=== PATIENT | male | born 1980 | race Caucasian/White ===

== ENCOUNTER 2018-04-08 09:00 | Outpatient (RCR) | payer MEDICAID, SELFPAY ==
--- NOTE | 2018-04-08 09:01 | BH.SGPN.GN ---
Behaviors/Verbalizations/Mental Status: [Client maintained fair eye contact, casually dressed, motor activity restless as client fidgeting, shaking legs, and looking at phone throughout, speech normal rate and tone, mood irritable,anxious, affect congruent, thoughts linear and logical, no evidence of delusions or hallucinations. Therapist reviewed clients symptom tracker to assess for intensity of mental health symptoms and identify risk for suicide. No signs of suicidal ideation, plan, or intent to date.] Client Response/Progress/Benefit: [Client first day in IOP program and adjusting to group environment. He did well to provide input to discussion and openly shared current symptoms and stressors leading to admission to IOP program. CLient expressed that he has been dealing with difficulties in managing his emotions, specifically that of irritability following an accident at work that left him severely injured. CLient indicated that he has been trying to move on but workman's comp. won't let me. Client disclosed wanting to gain better control of his anger as he feels it has been negatively impacting his relationships and client overall mental health. Client benefitted from the feedback provided by fellow participants who expressed struggling with similar irritability problems in the past. Client appears to have some insight into what his anger triggers are and expresses motivation to improve anger management. CLient recommended continued IOP to prevent decompensation while working on improving emotion regulation and stress management capabilities. ] Narrative Note: []
--- NOTE | 2018-04-08 13:14 | BH.COMM ---
Communication Note - Communication with Client Communication Note: Therapist met with client to build rapport and follow up after client's first day of IOP. Client shared group went well, and it was helpful to hear other people's stories. Client reported he has been struggling with numerous stressors, symptoms, and hardships that client would like to work on while in IOP. Client stated, I'm just irritable all the time and he wants to reduce irritability, increase coping skills, and increase the amount of activities he can do with his physical limitations. Client receptive to meeting with therapist for a full session later this week.
--- NOTE | 2018-04-09 09:03 | BH.SGPN.GN ---
Behaviors/Verbalizations/Mental Status: [Client maintained good eye contact throughout, casually dressed, motor activity was restless - client clenching fist and jaw, fidgeting in seat, speech circumstantial, mood depressed,anxious,irritable, affect congruent, thought circularity regarding frustration with supports and current disability limitations, no evidence of delusions or hallucinations. Therapist reviewed clients symptom tracker to assess for intensity of mental health symptoms and identify risk for suicide. No signs of suicidal ideation, plan, or intent to date.] Client Response/Progress/Benefit: [Receptive of session and actively engaged in the discussion portion. He indicated connecting well with fellow participants who were describing frustrations with her current support system as many participants indicated feeling misunderstood supports. Client went on to via an example in which he had gone home following OP group on the previous date and felt bombarded with questions from his . Client indicated experiencing difficulty in her remaining calm and indicated verbally lashing out telling his that she should just look at the binder. Client went on to describe not wanting to communicate the information he had just spent hours discussing in group however had difficulty in communicating that with his . Client displaying progress in his ability to recognize triggers for irritability as well as barriers in communicating effectively with supports. He appeared to benefit from connecting with fellow participants and reflecting upon areas in which she may have some control over her current circumstances. Client recommended continued IOP treatment in order to prevent decompensation as well as further improve current knowledge and understanding of personal mental health symptoms inability to cope with them.] Narrative Note: []
--- NOTE | 2018-04-09 10:17 | BH.SGPN.GN ---
Behaviors/Verbalizations/Mental Status: []Client alert and oriented, casual dress. Eye contact good. Motor activity restless, tense body language. Speech within normal limits. Affect flat, mood irritable, anxious. Thoughts linear, logical, no signs of hallucinations or delusions. Client Response/Progress/Benefit: []Client responded well to session, providing insight to discussion. Client appeared to connect with the quote sharing, sometimes it feels like you have to carry the load by yourself. Client discussed coping skills stating coping skills help one process, manage, and release emotions. Client shared one can learn coping skills from anyone and that unhealthy coping skills can be easier to use, but they have negative consequences. Client participated in the activity and appeared to regulate his irritability and be patient as evidenced by his reduced restlessness and improved engagement. Client shared the activity helped client increase awareness of the importance of quality coping skills over quantity. Client also reported it is important to have a mix of internal and external coping skills to prevent one from going boom. Client stated he mainly relies on himself when struggling with hardships which does not work out for client as he currently feels unstable. Client appeared to benefit from increasing awareness coping skills and of the benefits of having a balance of internal and external coping skills. Clients progress limited as it is clients second day, but he appears to attentive and active through note-taking. Client to continue IOP to increase emotional regulation and promote mood stability.
--- NOTE | 2018-04-09 11:25 | BH.SGPN.GN ---
Behaviors/Verbalizations/Mental Status: []Client alert and oriented, dress casual. Eye contact fair. Motor activity tense jaw, restless. Speech monotone, otherwise within normal limits. Affect constricted- client smiled a few times. Mood irritable, anxious. Thoughts linear, logical, no signs of hallucinations or delusions. Client Response/Progress/Benefit: []Client responded well to session, smiling with peers at times and providing ideas for coping skills. Client able to identify healthy and unhealthy coping skills he has used to manage his anger. Client shared he tries to use distractions which help manage his symptoms short term. Client helped the group create a list of coping skills for the five categories of coping skills- distraction, emotional release, grounding, self-love, and thought challenging. Client reported he often uses music and nature to cope which has been helpful. However, client has a hard time regulating his irritability, anger, and triggers. Client reported willingness to try identifying negative thoughts, music, and the 5-senses. Client appeared to benefit from increasing his repertoire of healthy coping skills and learning the importance of using a variety of coping skills. Client to continue IOP to prevent decompensation and increase emotional regulation skills.
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
--- NOTE | 2018-04-11 13:52 | BH.DR.ITP ---
Initial Treatment Plan - Patient Information Visit Information: ADMISSION DATE: EXPECTED LOS: 4-6 weeks Diagnoses:: Major depressive disorder F 33.2. PTSD - Problems/Symptoms Problem #1:: Depression Symptom:: Sad mood, anhedonia, recent thoughts of , biologic disruption of sleep and appetite Problem #2:: Anxiety Symptom:: Rumination, intrusive traumatic memories, panic, hypervigilance
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
--- NOTE | 2018-04-11 14:54 | BH.PSA_ITS ---
Source of Information - Presenting Problems/Circumstances Problems, Referral Source, Mental Status, Client: Client is a 37-year-old man, referred by his , who presents to [facility] due to symptoms of depression, anxiety, and PTSD. Client experienced a life-threatening accident at work in February 2017 in which he was trapped under a large amount of rubble. The accident required numerous surgeries and significantly decreased his quality of life. Client has not been back to work since the accident. Client reports worsening mental health symptoms which impact his social, familial, and occupational functioning. Client denies mental health history prior to the accident as well as psychiatric hospitalizations. Client currently reports depression, anxiety, and PTSD and endorses decreased sleep, decreased appetite, irritability, lack of motivation, lack of energy, hopelessness, poor memory, isolation, and poor concentration. Client shares having constant anxiety and frequent panic attacks with no triggers. Client also endorses flashbacks, vivid memories of the accident, hypervigilance, restlessness, and difficulty regulating emotions. Client reports passive thoughts of suicide, but he denies active suicidal or homicidal ideation, plan, or intent. Client was alert and oriented during session, restless, irritable, and cooperative. Psychiatric Presentation - Psych Issues & Need for Admission Psychiatric Issues:: Major depressive disorder single episode severe F 33.2; PTSD; Nicotine use disorder; Cannabis use Past Psychiatric History - Treatment Hx Treatment History: Psychiatric history significant for depression and PTSD since the accident and client denies history of mental health prior to the accident. Client denies history of previous psychiatric hospitalization or suicide attempt. Client currently sees Juan Luis [facility] for individual counseling whom he seen for 1 month. Client had past a medication trial of Depakote was discontinued after a month due to headaches. Client has been taking Zoloft for the past 2 months but reports that he has been consistent with it for only the past week. First hospitalization:: none reported Most recent hospitalization:: none reported Medication Trials:: Yes - Zoloft, Depakote ECT Therapy:: No Age of first mental health symptoms: Client denies history of mental health prior to his accident in 2016. Client first started experiencing symptoms of anxiety, depression, and PTSD at age 36. Describe (age, circumstance, etc) any past hospitalizations: Client denies previous hospitalizations. Current providers for mental health treatment (counselor, psychiatrist, nurse case management, etc.): Client currently sees Juan Luis Long at [facility]. Client just started seeing Juan Luis and has been to two sessions per client report. Development & Family of Origin - Childhood Significant Childhood Events: Client described his childhood as normal. - Family Who currently lives in your home?: Client and his live in [place] with [place] four [place]. Client shared we have a lot of space and it's nice. Describe family composition:: client was born and raised in [place], [place]. Client is the middle of 3 children, one older and one younger brother. Client describes growing up as normal. Client shared his parents have always been together. Client reported being close with his brothers and parents. Client has been to his , Gagandeep, for 9 years and together for 16 years. Client described his marriage as up and down. They have 4 children- triplet boys age 3 and a daughter age 4. Two of the triplet boys have fragile X syndrome. - Family History Family Hx of Psychiatric or AOD Problems: Client stated he father was a drinker but he denies family history of mental health or AOD problems. Ethnicity - Culture Do you identify yourself with any particular cultural, ethnic background, or community?: No - Sexuality Sexual Orientation: Heterosexual Spirituality - Adventism Do you currently identify with any organized scientologist?: non sabianism - Beliefs Is there a particular form of support from this community you can use for your recovery?: Yes - Client stated his arthur is important to him and he is a believ er Mental Status - Memory Recent Memory: Poor Remote Memory: Fair - Concentration Concentration: Fair - Eye Contact Eye Contact: Scans - Speech Speech: Rapid, Repetitious, Loud - Thought Process Thought Process: Logical, [place] Insight: Fair Judgment: Poor Behavior: Agitated - Orientation Orientation: Time, Person, Place, Situation - Appearance Appearance: Appropriate - Mood Mood: Anxious, Depressed, Irritable - Affect Affect: Constricted Suicide Assessment - Suicidal Ideation Have you ever felt like hurting yourself?: Yes Were you using ETOH/drugs at the time?: No Suicidal Intentional Rating Scale (SIRS): Suicidal thoughts (past) - Client has had intermittent passive thoughts of suicide. Last thoughts were 1 week ago. Denies suicide plan or intent. Feels able to maintain safety. Physician Notification: If Active suicidal thoughts/Will not contract for safety is checked, contact physician and document in the Physician Notification section below. Violent Behavior/Abuse History - Homicidal Ideation Do you have any homicidal thoughts? If so, explain:: Yes - client shared having thoughts of hurting others when angry. Is there a known potential victim? If yes, who:: No - Abuse Have you ever been abused?: No - Life Events Are there any other significant life events?: Financial loss - Client currently involved with workers compensation due to work injury and he is receiving a percentage of his normal pay. Client's had to return to work to maintain household needs., Hardships - client unable to work, experiencing daily pain, has limited physical ability, stressors with worker's compensation, and difficulty managing his emotions. - Safety Do you ever feel threatened in your home? If yes, describe:: No Adult Social History - Age 18 to Present Describe your current support system:: Client identified his , parents, brothers, and some buddies from youth as his supports. Client shared not many people in his life understand mental health though. Substance Use - Substance Substance Use Type: Alcohol - Consumes a sixpack of alcohol 1-2 times per month, Marijuana - Smokes cannabis daily for the past 2 months., Tobacco - client chews tobacco daily. Smokes occasional cigarettes socially., Caffeine - Consumes 2 cups of coffee daily., Other - Client did not shared what drugs he has used in the past but shared there weren't many things I didn't try. Client denied heroin use. - Specific Drugs What specific drugs have you used?: Alcohol, marijuana, caffeine, and tobacco. Client shared during his youth I partied a lot and used illicit drugs, but client declined to shared which drugs. Client denies heroin use. - Extent of Use What quantity of substances have you used?: Client reports drinking a sixpack of alcohol 1-2 times per month, client smokes marijuana daily two bowls- one in the morning and one in the evening. Client reports social cigarette smoking and chewing daily. - Duration of Use How long have you used substances?: Client reports chewing and drinking for at least 15 years. Client reports increased marijuana use over the past 2 months. Client reports he has stopped using republican drugs. - Last Usage What is the date and situation you last used?: Client smoked marijuana this morning and used a bowl. Client drank last weekend with his brothers. Client reported I gave up partying when I got and had kids. - Withdrawal History Comments:: none reported - IV Substance Use Do you have a history of IV use?: none reported Leisure/Social Activities - Interests What do you enjoy or might be interested in learning about?: Client enjoys fantasy football, fishing, hunting, learning about history, being outdoors, mowing, and spendting time with his children. 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 Client has been unable to work since last February. List any previous volunteering you may have done:: none reported Service - Service Have you ever been in the ?: No Legal History - Records Have you had any past legal charges?: Yes - Age 20 was charged with disorderly conduct after a bar scuffle. Do you have any current legal charges?: No - Court Orders Have you had any past court orders for psychiatric treatment?: No Do you have a present court order for psychiatric treatment?: No Problem Checklist - Current Problem Areas Problem List: Nutritional/Eating pattern changes - Reports an overall decreased appetite., Pain management - In February 2017 he sustained a traumatic work injury in which a portion of the road fell on him resulting in hip fracture and other physical injuries. He reports ongoing pain and physical limitations., Depressed mood/sad - Client endorses a depressed mood with irritability, anhedonia, decreased energy, Anxiety - Moderate ruminative anxiety regarding his future inability to provide for his family. Panic attacks over the last 2 months in which he has shortness of breath and heart palpitations., Traumatic stress - reports symptoms consistent with PTSD and including intrusive memories of the trauma, avoidance, and hypervigilance to noises and activity. He describes feeling in defense mode., Anger/aggression - Client shared I'm just tense and pissed all the time. Client stated his anger is easily triggered and when he gets upset he wants to hit or hurt something, but not himself. Client shared he would never hurt his or children. Client stated his anger and irritability get to the point where I just have to get away from people or it will be bad., Inattention - reports difficulty concentrating, Substance use - Smokes cannabis daily for the past 2 months. Client reports history of substance use in his youth sharing, what didn't I try back then and that he partied a lot. Client denies current illicit drug use outside of cannabis. Client also reports drinking 1-2 six packs per month, but shared he has drank to avoid problems in the past., Pertinent health issues - Pelvic fracture due to work injury February 2017 HNP-work injury February 2017, Additional psychosocial stressors - Client and his have four small children, two of which have fragile X syndrome and need additional support and care. Client unable to work due to his physical limitations and mental health. Discharge Planning Needs - Anticipated Follow-Up Mental Health Center (Name/Phone Number):: [facility]. 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 What are the client's goals?: Client wants to reduce irritability, increase coping skills, and increase the amount of activities he can do with his physical limitations. What are the client's strengths?: Client reports wanting to improve his mental health stating, I don't like being this angry person. Client appears to have a good sense of humor, is intelligent, cooperative, and reports living life by you treat me with respect I'll do the same. Client is a father to 4 young children and shared his children are his main motivator for improving his mental health. Client demonstrates resilience as shown by his ability to overcome a life-threatening accident. Client identifies his parents, brothers, and a few close friends as positive supports. Client stated he enjoys spending time outside and listening to music which also help client manage his anxiety and anger. Diagnoses - Diagnoses Diagnosis #1:: Major depressive disorder single episode severe F 33.2 Diagnosis #2:: PTSD Diagnosis #3:: Nicotine use disorder Diagnosis #4:: Cannabis use Interpretive Summary - Interpretive Summary Interpretive Summary: Client is a 37-year-old male who presents to [facility] with chief complaint of depression and anxiety. Client denies previous psychiatric problems until February 2017 when he experienced a traumatic work injury in which a portion of the road fell on him resulting in hip fracture and other physical injuries. Client endorses depression due to ongoing pain and physical limitations. Client has difficulty performing his ADLs such as tying his shoes due to ongoing pain from his injuries. Client reports symptoms consistent with PTSD, including intrusive memories of the trauma, avoidance, and hypervigilance to noises and activity. Client describes feeling in defense mode and shared he feels constantly triggered at home due to having four small children. Client endorses a depressed mood with irritability, decreased appetite, anhedonia, decreased energy, and difficulty concentrating. Client has had intermittent passive thoughts of suicide with his last thoughts being one week ago. Denies suicide plan or intent and feels able to maintain safety. Client denies hallucinations or symptoms consistent with psychosis. Client shares moderate ruminative anxiety regarding his inability to provide for his family and panic attacks over the last 2 months in which he has shortness of breath and heart palpitations. They are triggered by events in which client feels like he does not have control. Client denies family history of mental health or AoD, but described his father as a ?drinker.? Client denies abuse or trauma prior to his work injury. Client reports using alcohol and cannabis to cope with emotional and physical pain. Client was encouraged alcohol and cannabis abstinence. Treatment Plan Recommendations - Recommendations Guidelines: Special needs identified to be included in the development of an individualized treatment plan regarding past psychiatric history and treatment, developmental events, family relationships/events/culture, past and/or current educational, occupational, social, and residential experience, and legal status. Recommendations:: Client recommended to be admitted to [facility] as the structured setting is necessary to prevent decompensation. Client also encouraged to follow up with outpatient counseling at [facility] as well as alcohol, nicotine, and cannabis abstinence.
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
--- NOTE | 2018-04-14 16:26 | BH.COMM ---
Communication Note - Communication with Client Communication Note: Therapist attempted to call client's outpatient therapist Juan Luis Long for continuity of care and to provide updates. Therapist left a message for
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
--- NOTE | 2018-04-15 10:15 | BH.SGPN.GN ---
Behaviors/Verbalizations/Mental Status: [Client maintained good eye contact, actively engaged, casually dressed with appropriate hygiene, motor activity within normal limits - some restlessness near end of session AEB tapping feet, playing on phone, speech normal rate and tone, mood euthymic, contemplative, affect congruent, thoughts linear and logical - reflective of content discussed, no evidence of delusions or hallucinations.] Client Response/Progress/Benefit: [Client receptive of session and engaged throughout, AEB providing input to discussion and connecting with examples provided by others on topic of conflict resolution. Client indicated agreeing with the quote for today's topic and expressed beliefs that not listening to understand is his biggest barrier in relaying his mental health sx to his . Client benefited from reviewing various conflict resolution styles and the pros and cons of each. Did well to provide insight on each, specifically identifying the pros/cons of various conflict styles, though at times looking at phone which was distracting himself and others. Client identified often falling into the assertive and ?avoiding? approaches to conflict, reflecting that sometimes he has to avoid or her will ?explode on someone. Made progress in his ability to identify ways in which these approaches impact current relationships as well as client mental health. Client recommended continued IOP treatment to further improve ability to internalize tx materials, improve emotion regulation, and increase utilization of internal coping and thought challenge skills.] Narrative Note: []
--- NOTE | 2018-04-15 11:17 | BH.SGPN.GN ---
Behaviors/Verbalizations/Mental Status: [Client maintained fair eye contact, dressed casually and comfortably, motor activity restless use of coloring to self regulate, speech normal rate and assertive tone, mood euthymic, agitated, affect full, thoughts linear and logical, no evidence of delusions or hallucinations.]] Client Response/Progress/Benefit: [Client responded well to session, active participant and attentive in both activity and discussion portions. Client did well to work with fellow participants in completing the challenge activity. Indicates using collaborating communication throughout and noted easily compromising an discussing with the group. Client reflected that this does not occur in his own life, particularly in communicating with his , as client noted that he feels others in his life are not willing to collaborate or listen which in turn impacts his patience and willingness to listen as well. Progress noted in identifying how not being willing or able to easily collaborate impacts client emotion regulation and mental health sx management. Client helped the group identify strategies to improve conflict resolution such as taking a break, actually taking time to communicate with supports, and listening as the other person shares. Client appeared to benefit from learning various conflict resolution strategies. Client to continue IOP improve mood regulation and communication with supports, as well as prevent decompensation.] Narrative Note: []
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
--- NOTE | 2018-04-16 10:25 | BH.SGPN.GN ---
Behaviors/Verbalizations/Mental Status: []Client alert and oriented, neatly dressed and groomed. Eye contact good. Motor activity appropriate. Speech within normal limits. Affect full, mood euthymic. Thoughts linear, logical, no signs of hallucinations or delusions. Client Response/Progress/Benefit: []Client responded well to session, participating occasionally. Client connected with the quote sharing, ?I focus on the negatives and then I?m angry all the time.? ?Client appeared somewhat disengaged, but he listened as the group discussed the different types of distortions and client reported ?I use all of them.? Client agreed with peers that cognitive distortions further worsen mental health symptoms. Client appeared to benefit from gaining insight to the different types of cognitive distortions. Client to continue IOP as he continues to report severe anger, a depressed mood, and low motivation.
--- NOTE | 2018-04-16 11:25 | BH.SGPN.GN ---
Behaviors/Verbalizations/Mental Status: []Client alert and oriented, neatly dressed and groomed. Eye contact good. Motor activity appropriate. Speech within normal limits. Affect flat, mood irritable. Thoughts linear, logical, no signs of hallucinations or delusions. Client Response/Progress/Benefit: []Client responded somewhat well to session, engaged in activity, but sarcastic during discussion. Client was active during the group activity and connected that overcoming cognitive distortions takes a lot of time, practice, and energy. Client participated with the group in identifying cognitive distortions and replacing them. Client identified his thought of ?nothing works I should just give up? which client identified as all or nothing thinking and overgeneralizing. Client reluctant to challenge this thought, but he did so with group help. Client reframed the thought to ?maybe things will get better.? Client appeared to benefit from gaining insight to the effort it takes to replace negative thoughts and from challenging a negative thought during group.
--- NOTE | 2018-04-17 10:16 | BH.COMM ---
Communication Note - Communication with Client Communication Note: Therapist called client as he no showed for his scheduled IOP individual and group sessions today. Client shared he attempted to call and cancel, but he did not reach anyone and then forgot to call back. Client stated he has an appointment this morning that conflicted with IOP and client plans to attend group and meet with individual therapist tomorrow 04/18/18.
--- NOTE | 2018-04-18 09:00 | BH.SGPN.GN ---
Behaviors/Verbalizations/Mental Status: [] Eye contact was fair. Motor Activity was restless. Appearance was casual. Speech was appropriate. Mood was irritable and anxious Affect was congruent. Thoughts are linear and logical. No evidence of hallucinations/delusions noted. Therapist reviewed daily mood tracker for suicidal ideations and none were reported. Client Response/Progress/Benefit: [] Active participant in group discussion. Emotion for today is tense and anxious. Shared with the group some frustrations regarding medical appointments yesterday. Gets visibly upset when discussing certain providers whom he feels don't have his best interests in mind. More he talks and thinks about these events he reports getting more angry. Group provided support and empathy for his concerns. Reports that he has noticed some improvement in his anger however continues to struggle finding ways to calm. States that in the past he would utilize physical exercise or strenuous work to release tension however due to medical issues he is unable. Also reports stress and anger that he cannot provide for his family like he once did. Group was able to point out that caring for family takes many forms and gave suggests on ways to provide for his family emotionally. Limited progress as pt struggles to utilize skills for anxiety and anger on a consistent basis, however appears motivated. Benefited from group feedback and support. Will continue in IOP to stabilize mood, prevent decompensation, and increase daily functioning. Narrative Note: []
--- NOTE | 2018-04-18 10:05 | BH.SGPN.GN ---
Behaviors/Verbalizations/Mental Status: []Client alert and oriented, hygiene good, casual dress. Eye contact good. Motor activity appropriate, appearing tense at times. Speech within normal limits. Affect constricted, mood euthymic, slightly irritable. Thoughts linear, logical, no signs of hallucinations or delusions. Client Response/Progress/Benefit: []Client responded well to session, active participant. Client appeared to connect with the topic sharing, we are harder on ourselves when it comes to failure, but you have to keep trying. Client able to identify famous people who have succeeded despite failures. Client identified failure as not reaching a goal or not trying. Client shared fear of failure can lead to lack of effort and can negatively impact mental health. Client participated in the group activity and identified that sometimes move has to move backwards to move forwards. Client appeared to benefit from gaining insight to how fear of failure impacts mental health. Client to continue IOP to prevent decompensation and increase use of internal emotional regulation skills to manage mental health symptoms.
--- NOTE | 2018-04-18 14:11 | BH.MDN ---
Multi-Disciplinary Note - Note 30-min Individual Time Started:: 08:50 Date: 04/18/18 Purpose of session/treatment goals addressed:: The purpose of this session was to provide psychoeducation on PTSD and increase client's awareness of warning signs, triggers, and symptom management. Another goal was to review grounding coping skills and set a goal to increase physical activity this weekend. Eye Contact:: Good Motor Activity:: Other - tense, rigid Appearance:: Casual Speech:: Rapid Mood:: Irritable Affect:: Constricted Thoughts:: Linear, Logical, No evidence of hallucinations/delusions noted Staff Interventions:: Therapist used active listening and open-ended questions to explore client's current stressors, symptoms, and use of coping skills. Therapist used a video on trauma and the brain to provide psychoeducation on the impact PTSD has on the cognitive and emotional response. Therapist introduced grounding and self-talk techniques to manage emotions when client experiences a trauma trigger. Therapist helped client increase insight to the importance of practicing grounding coping skills daily to reduce stress and increase emotional regulation. Therapist reviewed healthy versus unhealthy coping skills and helped client create a goal for the weekend. Client Response:: Client responded well to session, open to meeting with therapist. Client reported he continues to have difficulty managing his anger at home. Client shared he tries deep breathing, but that makes him feel tenser. Client stated walking away from the situation before I explode is the most helpful coping skill so far. Client reported belief not exerting enough energy throughout the day also contributes to his inability to manage stress and anger. Client was receptive to incorporating physical regulation into his daily routine to help better manage stress and increase his emotional regulation. Client shared he has been wanting to set up a punching bag, but he has not go around to it. Client and therapist identified various emotional release coping skills such as swimming, biking, and work out bands. Client agreeable to writing out a daily routine over the weekend incorporating these techniques. Client watched the trauma and the brain video and reported he connected with loss of memory and the survival response. Client shared he experiences hypervigilance, flashbacks, and intrusive memories that feel so real. Client open to learning grounding and self-talk techniques to manage emotions when client gets triggered. Client shared he would try positive self-talk statements over the weekend such as Im not in danger and try grounding techniques in the evenings. Risks/Concerns:: Client denies suicidal ideation, plan, and intent as of 04/18/18. Client reports ability to maintain safety. Progress Toward Goals/Plan:: Client demonstrating mild progress towards treatment goals as client reports increased awareness of his triggers and warning signs and has avoided punching things to release anger. Client shared learning about PTSD has also been helpful for normalizing client's experience. Client continues to report irritability, low motivation, poor memory, and difficulty regulating emotions. Client also reports ongoing communication and boundary issues with his which impacts client's mood. Client to create a daily routine to increase use of physical regulation and grounding skills. Client to continue IOP to prevent decompensation and increase emotional regulation. Time Stopped:: 09:13
[2018-05-16 15:15] VITALS: BP 128/85; PULSE 78; RESP 16
== END 2018-04-18 23:59 ==
LOC: BHIOP 09:00
PROVIDERS: Visit Provider Psychiatry & Neurology Psychiatry
DX: F33.2 Major depressive disorder, recurrent severe without psychotic features (principal); F43.10 Post-traumatic stress disorder, unspecified
CPT/HCPCS: 90836; H0035; H2012; H2020; T1002; 90832; 90837

== ENCOUNTER 2018-04-22 08:55 | Outpatient (RCR) | payer MEDICAID, SELFPAY ==
--- NOTE | 2018-04-22 09:05 | BH.SGPN.GN ---
Behaviors/Verbalizations/Mental Status: [] Pt eye contact fair, casually dressed, motor activity restless, speech normal rate and tone, mood anxious and irritable, congruent affect, thoughts linear and logical, no evidence of delusions or hallucinations. Reviewed client?s symptom tracker, no signs of suicidal ideation, plan, or intent as of today. Client Response/Progress/Benefit: [] Client reported he did not have a very productive or good weekend. Client shared he was in constant arguments with his and eventually went to his dad's on Saturday to go fishing and get away. Client reported he ended up just drinking and hanging out with his dad on the boat. Client did not want to go into details about what happened over the weekend besides nothing positive happened. Client shared feeling tense all weekend and did not attempt any of the coping strategies because breathing and relaxation skills do not work when I am extremely tense. Client progress could be hindered if client struggles with attempting to utilize the coping strategies to manage his emotions. Regression in progress given client went to using alcohol as a form of dealing with his issues. Client to continue IOP level of care to stabilize mood, improve daily functioning and prevent decompensation. Narrative Note: []
--- NOTE | 2018-04-22 10:12 | BH.SGPN.GN ---
Behaviors/Verbalizations/Mental Status: [Client alert and oriented, casually dressed and groomed. Eye contact fair to good. Motor activity appropriate. Speech within normal limits. Affect congruent, mood agitated, dysthymic. Thoughts linear, logical, no signs of hallucinations or delusions. ] Client Response/Progress/Benefit: [Pt receptive of session, mostly engaged throughout and coloring during discussion to remain regulated. Appeared to connect with the topic of Communication and how ineffective communication can impact mental health. Provided personal experience with relationships as well as ability to get needs met have been impacted by communicating during times of emotion dysregulation. Pt worked with group to identify potential barriers to communication and appeared to related to various barriers discussed. Pt was actively listening during discussion on different communication styles and shared relating to the communication style of aggressive communication, especially during times of increased stress. Pt shared wanting to become less aggressive and more assertive. Pt appeared to benefit from psycho-education provided regarding communication and it's impacts on mental health. Progress noted in pt ability to identify own communication style and it's impact on his mental health, especially regarding . Pt recommended continued IOP tx to promote healthy change behaviors, increase emotion regulation, and prevent decompensating.] Narrative Note: []
--- NOTE | 2018-04-22 11:26 | BH.SGPN.GN ---
Behaviors/Verbalizations/Mental Status: []Client alert and oriented, disheveled appearance. Eye contact good. Motor activity appropriate. Speech within normal limits. Affect congruent, mood euthymic. Thoughts linear, logical, no signs of hallucinations or delusions. Client Response/Progress/Benefit: []Client active participant AEB contributions and attentiveness throughout. Client took an active role during the activity that encouraged clients to practice clear, specific communication. At times struggling with maintaining focus, though easily redirected. Group identified strategies that helped the group communicate more effectively during the activity. Client identified communication goal which is to practice being more calm and consistent in his communication with supports. Client seemed to benefit from increased insight into how his communication style impacts mental health and identifying strategies for increasing effective communication skills. Progress noted as client reports increased mood regulation. Will continue IOP tx to prevent decompensation, improve mood stability, and promote consistent use of coping skills. Narrative Note: []
--- NOTE | 2018-04-24 14:27 | BH.COMM ---
Communication Note - Communication with Client Communication Note: Client called to cancel his scheduled IOP group and individual session today due to car issues on his drive to [place]. Client reports plan to attend group tomorrow, 04/25/18 if his car issues resolve. Client's individual session with this therapist was also rescheduled for tomorrow as well.
--- NOTE | 2018-04-25 12:17 | BH.COMM ---
Communication Note - Communication with Client Communication Note: Therapist called client as he no called/ no showed for his scheduled IOP group and individual session today. Client reported he continues to have car issues today and plans to attend group next week. Client recognizes that he was unable to meet individually this week due to cancellations and was open to meeting with therapist next week. Client did not know which days he could attend next week and shared he would call therapist back to provide more information.
--- NOTE | 2018-05-01 15:39 | BH.COMM ---
Communication Note - Communication with Client Communication Note: Therapist called client to follow up as client has been having car issues that prevent client from attending [facility]. Client shared his car is currently in the shop and he hopes to return to group next week. Client shared things this week are better than last week due to increased communication and understanding from his . Client reports ongoing back pain and irritability. Client and therapist discussed coping strategies to manage irritability over the weekend. Client to call therapist when he plans to return to [facility].
--- NOTE | 2018-05-01 15:43 | BH.COMM_ITS ---
Communication Note - Communication with Client Communication Note: Therapist called client to follow up as client has been having car issues that prevent client from attending [facility]. Client shared his car is currently in the shop and he hopes to return to group next week. Client shared things this week are better than last week due to increased communication and understanding from his . Client reports ongoing back pain and irritability. Client and therapist discussed coping strategies to manage irritability over the weekend. Client to call therapist when he plans to return to [facility].
--- NOTE | 2018-05-06 09:14 | BH.COMM ---
Communication Note - Communication with Client Communication Note: Therapist called client to discuss possible discharge due his lack of IOP attendance caused by car issues. Client reported he got his car back yesterday and plans to be at [facility] tomorrow 05/07/18. Client shared he does not want to be discharged and reported understanding that he needs to attend at least once this week, or he will be discharged from [facility]. Therapist to meet with client individual this week depending on client's attendance.
--- NOTE | 2018-05-06 09:19 | BH.COMM_ITS ---
Communication Note - Communication with Client Communication Note: Therapist called client to discuss possible discharge due his lack of IOP attendance caused by car issues. Client reported he got his car back yesterday and plans to be at [facility] tomorrow 05/07/18. Client shared he does not want to be discharged and reported understanding that he needs to attend at least once this week, or he will be discharged from [facility]. Therapist to meet with client individual this week depending on client's attendance.
--- NOTE | 2018-05-07 10:03 | BH.SGPN.GN ---
Behaviors/Verbalizations/Mental Status: []Client alert and oriented, casual dress, hygiene good. Eye contact poor. Motor activity appropriate. Speech within normal limits-sarcastic at times. Affect flat, mood irritable. Thoughts linear, logical, no signs of hallucinations or delusions. Client Response/Progress/Benefit: []Client responded well to session, participating in activity. Client discussed things in life that keep people stuck from obtaining mental wellness such as past hardships. Client listed things he would like to get rid of in his life that are contributing to his mental health symptoms. Client identified anxiety, pain, frustration, depression, poor memory, and anger. Client shared if he removed these stressors he would be able to do the things he used to be able to do. Client participated in the activity that promoted emotional release of things holding client back. Client appeared to benefit from identifying what he would like to remove from his life in order to obtain improved mental wellness. Client continues to struggle with emotional regulation and can benefit from ongoing IOP.
--- NOTE | 2018-05-07 11:05 | BH.SGPN.GN ---
Behaviors/Verbalizations/Mental Status: []Client alert and oriented, casual dress, hygiene good. Eye contact poor. Motor activity appropriate. Speech within normal limits-engaging in side conversations. Affect constricted, mood irritable. Thoughts linear, logical, no signs of hallucinations or delusions. Client Response/Progress/Benefit: []Client responded somewhat well to session, engaged in side conversations. Client created a 30-day plan to help client get rid of one of the stressors holding client back from improved mental wellness. Client?s 30-day plan was no more ?frustration at everything.? Client stated he picked this stressor because client has a hard time managing his anger and does not like feeling out of control. Client appeared to benefit from creating a 30-day action plan. Progress variable as client reports lack of implementation of healthy coping skills.
--- NOTE | 2018-05-07 14:31 | BH.MDN ---
Multi-Disciplinary Note - Note 30-min Individual Time Started:: 12:05 Date: 05/07/18 Purpose of session/treatment goals addressed:: The purpose of this session was to address and process client's current stressors, symptoms, emotions, and recent loss. Another goal was to discuss healthy coping skills to utilize while client is grieving. Eye Contact:: Poor Motor Activity:: Restless, Other - guarded Appearance:: Disheveled - pants were falling down Speech:: Rapid Mood:: Anxious, Irritable, Dysthymic Affect:: Flat Thoughts:: Linear, Logical, No evidence of hallucinations/delusions noted Staff Interventions:: Therapist used active listening and open-ended questions to explore client's current mood, stressors, and symptoms. Therapist assessed risk as client recently lost a friend to possible suicide. Therapist provided client a safe space to discuss and process his current emotions and grief. Therapist used strengths perspective to praise client on his ability to attend group today and reach out to positive supports last night. Therapist and client discussed healthy coping skills to use today to promote emotional release, healthy boundaries, and reduce anger. Therapist and client discussed bringing in client's to increase communication of client's needs and stressors. Client Response:: Client responded well to session, body language was guarded, but he was open to meeting with therapist. Client shared the past two weeks of not being at IOP have been up and down as client continues to report communication issues with his . Client stated the last two days have been difficult as client found out yesterday his friend of 20 years from a gunshot wound to the head from possible suicide. Client also had to put his dog down due to old age. Client shared he is having a hard time coping with all the stressors and is feeling mad, sad, and anxious. Client stated he often wears a mask when difficult things happen in life so that others think client is fine. Client expressed the mask makes it challenges to process and feel his emotions. Client went over to a friend's house last night for support after hearing about his friend's . Client stated spending time with the friend helped client feel better, but per client's report, his was upset that client was not home. Client reported feeling frustrated because he feels like he tells his what he needs, but client shared his disregards what he says, and just pisses me off more... she's always giving me her option and trying to fix me. Client was open to bringing his in for a family session next week. Client receptive to ongoing communication of his mental health stressors and needs, even if he does not get the response he hopes for. Client and therapist discussed healthy ways client can cope and deal with his grief and anger today such as spending time outside, communicating his need for self-care, listening to music, and going over to a friends house for social support. Risks/Concerns:: Client denies suicidal ideation, plan, and intent as of 05/07/18. Client shared he has thoughts of hurting things but I would never kill myself. Client reports ability to maintain safety and plans to be at group tomorrow which demonstrates future orientation. Progress Toward Goals/Plan:: Client's progress is limited as he did not attend IOP for two weeks due to car issues which may have impacted his ability to learn and apply healthy coping skills. Client continues to endorse a depressed mood, irritability, low energy, anhedonia, intrusive memories of trauma, and hypervigilance to noises. Client also continues to report ongoing back pain that exacerbates his mental health symptoms, specially his irritability. Client to continue IOP to prevent decompensation, increase mood stability, and learn to more effectively cope with symptoms. Client was encouraged to communicate with his [place] regarding a family session and to spend time with positive supports to help cope with his recent loss. Time Stopped:: 12:25
--- NOTE | 2018-05-08 09:05 | BH.SGPN.GN ---
Behaviors/Verbalizations/Mental Status: []Pt eye contact fair, casually dressed, motor activity tense, speech normal rate and tone, mood depressed and agitated, congruent affect, thoughts linear and logical, no evidence of delusions or hallucinations. AT times appeared distracted AEB pt looking at phone majority of time. Pt did verbalize he is still listening and the phone helps him stay busy so he can listen. Reviewed client?s symptom tracker, no signs of suicidal ideation, plan, or intent as of today. Client Response/Progress/Benefit: []Pt reported he is more relaxed compared to yesterday. Pt identified it helped when he left group yesterday he went for a massage. Pt reported when he got home from his massage his had the kids out swimming until bed time. Pt shared it gave him the opportunity to relax and not have any unneeded stressors. Pt reported he is still angry and upset over his friend's , but feels he is doing better with coping. Pt demonstrating progress with using healthy coping skills to help with recent suicide of best friend. Pt to continue IOP level of care to decrease anger, improve healthy coping, and prevent decompensation. Narrative Note: []
--- NOTE | 2018-05-08 10:09 | BH.SGPN.GN ---
Behaviors/Verbalizations/Mental Status: []Client alert and oriented, casual dress. Eye contact good. Motor activity appropriate. Speech within normal limits. Affect congruent, mood anxious, euthymic. Thoughts linear, logical, no signs of hallucinations or delusions. Client Response/Progress/Benefit: []Client responded well to session, attentive in discussion. Client appeared to connect with the quote and provided some insight. Client created a visual representation of current and desired realities in regards to mental wellness. In client?s current reality client described struggling to communicate with supports and being overwhelmed with anger impacting his ability to make progress. Shared feeling weighed down by PTSD as well. Shared desired reality is feeling more capable of regulating his emotions, able to return to work, and better communicating with supports. Client appeared to benefit from gaining awareness of what his current and desired realities look like as well as reflecting on progress he has made. Client to continue IOP to promote gains and increase consistency of healthy coping and improving emotion regulation. Narrative Note: []
--- NOTE | 2018-05-08 11:15 | BH.SGPN.GN ---
Behaviors/Verbalizations/Mental Status: []Client alert and oriented, casual dress. Eye contact good. Motor activity appropriate. Speech within normal limits. Affect congruent, mood agitated and euthymic. Thoughts linear, logical, no signs of hallucinations or delusions. Client Response/Progress/Benefit: []Client responded well to session, contributing positively. Client identified barriers in client?s control that are keeping him from getting to desired reality such as negative thinking and irritability. Client engaged in the group activity and was able to develop strategies to help overcome these barriers. Client reflected on the activity and shared importance of challenging negative perspective on overcoming barriers. Client set a goal to overcome the barrier of irritability by taking breaks and using deep breathing. Client appeared to benefit from problem-solving barriers in the moment. Progress noted as shown by client?s increased engagement. Recommended continued IOP tx to improve communication, decrease irritability, and improve mood regulation. Narrative Note: []
--- NOTE | 2018-05-09 09:05 | BH.SGPN.GN ---
Behaviors/Verbalizations/Mental Status: [] Pt eye contact fair, casually dressed, motor activity restless, speech normal rate and tone, mood depressed and agitated, congruent affect, thoughts linear and intact, no evidence of delusions or hallucinations. Reviewed client?s symptom tracker, no signs of suicidal ideation, plan, or intent as of today. Client Response/Progress/Benefit: [] Client reported current stressors include having to go to the tomorrow for his best friend that completed suicide. Client expressed concern about having interaction with a certain person at the that could potentially agitate client, however client shared he will do his best to avoid having any interaction with this person. Client shared positive is at the he will get to see a lot of people but he has not seen in a while and catch up. Client shared a goal for himself is to not drink any alcohol throughout the weekend because he recognizes when he drinks alcohol it tends to make his situation worse. Client showing progress with awareness of what unhealthy his coping skills he should not engage in as well as opening up more with thoughts and feelings during process group. Client to continue IOP level of care to decrease anger, increased healthy coping, and prevent decompensation. Narrative Note: []
--- NOTE | 2018-05-09 10:12 | BH.SGPN.GN ---
Behaviors/Verbalizations/Mental Status: []Client alert and oriented, casual dress, hygiene good. Eye contact good. Motor activity restless. Speech within normal limits. Affect constricted, mood irritable. Thoughts linear, logical, no signs of hallucinations or delusions. Client Response/Progress/Benefit: []Client responded well to session, providing input to session. Client discussed coping skills with the group and shared one learns coping skills from home, siblings, and school. Client shared people revert to unhealthy coping skills because ?it?s easier and a temporary fix but using healthy coping skills is more beneficial in the long run. Client participated in the group activity and recognized that when the group did not succeed they blamed one another. Client shared this can connect to coping with situations in life. Client appeared to benefit from learning about how one develops coping skills and from using in the moment coping skills. Client to continue IOP as he has improved communication with peers, but he continues to struggle with emotional regulation.
--- NOTE | 2018-05-09 11:12 | BH.SGPN.GN ---
Behaviors/Verbalizations/Mental Status: []Client alert and oriented, casual dress. Eye contact good. Motor activity restless. Speech within normal limits, using sarcasm. Affect constricted, mood irritable. Thoughts linear, logical, no signs of hallucinations or delusions. Client Response/Progress/Benefit: []Client responded well to session, using sarcasm at first which distracted from group, but then contributing positive insight. Client helped the group identify strategies for the different categories of coping skills and the purpose each category serves. Client shared it is important to have a variety of coping skills ?because sometimes you need something specific.? Client created a coping skills menu which included journaling, cooking, positive affirmations, DDD (delay distract decide) and radical acceptance. Client appeared to benefit from creating a coping skills menu and learning about the different categories of coping skills. Client to continue IOP as client continues to struggle with emotional regulation and mood instability.
--- NOTE | 2018-05-09 16:10 | BH.TPR ---
Treatment Plan Review Date of Admission:: 04/08/18 Date of Treatment Plan Review:: 05/09/18 Admitting Diagnoses:: Major depressive disorder F 33.2. PTSD Current Diagnoses:: Major depressive disorder F 33.2. PTSD Patient's Response to Treatment:: Client's response to treatment has been variable as client missed two weeks of IOP due to car issues and other stressors. Client recently returned to [facility] on 05/07/18 reporting numerous stressors including the loss of a friend by gunshot wound. Client continues to endorse severe symptoms of depression, anxiety, and PTSD. Client reports increased awareness of triggers, symptoms, and some warning signs, but he continues to report difficulty implementing healthy coping skills to regulate his emotions. Client has reduced some unhealthy coping skills such as drinking and punching things which demonstrates progress. Client is receptive to bringing his in to help with communication, support, and ongoing symptom management. Client reports motivation to improve functioning and appears open to learning new coping skills. Overall, client is an active participant, when at [facility], who provides insight and supportive statements to peers. Client struggles at times with engaging in side conversations, but he is easily redirected. Client has followed through with trying healthy coping skills discussed in group and individual sessions, but reports difficulty with consistency and proactive use. Status of Current Problems and Symptoms: Client's progress is limited as he did not attend [facility] for two weeks due to car issues which may have impacted his ability to learn and apply healthy coping skills. Client continues to endorse a depressed mood, irritability, low energy, and anhedonia. Client?s friend recently of a gunshot wound and client recognizes he is grieving. Client reports ongoing intrusive memories of work-related trauma, avoidance, and hypervigilance to noises. Client shared he cannot tolerate loud noises and feels unable to return to work due to the severity of his mental health symptoms. Client endorses ruminative anxiety which is due to work, home, and financial stressors. Client reports his symptoms are impacting his ability to regulate emotions, concentrate, and focus. Client also continues to report ongoing back pain that exacerbates his mental health symptoms, specially his irritability. Problem #1 Problem Name:: Pt. will decrease depressive symptoms, anhedonia, and agitation Status of Goals:: Client has not accomplished his treatment goal as he continues to endorse a depressed mood, irritability, anhedonia, difficulty concentrating, and low motivation. Client's mood may be further impacted due to a recent loss. Client and therapist have discussed coping skills for depression, but client continues to report difficulty implementing healthy strategies. Client is currently using music and yard work to cope which demonstrates some progress. Client and therapist have not yet been able to work on challenging cognitive distortions due to current stressors and issues with attendance. At admission client scored 8 out of 8 (severe) for depression and 4 out of 4 (severe) for anger. At review, client's scores remained unchanged at 8 and 4 for depression and anger respectively. Client and therapist currently working on establishing healthy coping routines and verbalizing emotions. Team Recommendations:: Client recommended to continue working on treatment goal as he continues to endorse depressive symptoms, low motivation, anhedonia, and irritability. Client also reports difficulty recognizing warning signs of depression and anger which makes it challenging for client to use healthy coping skills. Client and therapist currently working on establishing a daily routine to promote use of coping skills, exercise, and accomplishing tasks. Therapist and client also working on communicating needs and recognizing early warning signs. Client is recommended to follow up with outpatient therapist, Juan Luis Long for continuity of care. Problem #2 Problem Name:: Pt. will reduce anxiety and rumination and increase management of PTSD Status of Goals:: Client has not accomplished his treatment goal as he continues to report severe anxiety and PTSD symptoms. Client reports increased awareness of PTSD symptoms and has learned at least 2 coping skills to manage anxiety and PTSD, but client reports difficulty implementing coping skills and regulating emotions. At admission, client scored 12 out of 12 (severe) for anxiety and 4 out of 4 (severe) for anger. At review, client's scores remained at 12 and 4 for anxiety and anger respectfully. Client and therapist currently working on increasing emotional release and mindfulness skills to manage PTSD and anxiety. Team Recommendations:: Client recommended to continue working on treatment goal as client has gained awareness to PTSD triggers, but he continues to endorse hypervigilance, avoidance, and intrusive memories of the work-related event. Client continues to report difficulty regulating his emotions and trauma triggers which makes it hard for client to be around people and loud noises. Client recommended to bring his in to [facility] to help increase understanding of client's trauma triggers, mental health needs, and coping skills. Client also [facility] [place] for trauma-focused therapy.
--- NOTE | 2018-05-12 09:00 | BH.SGPN.GN ---
Behaviors/Verbalizations/Mental Status: []Client alert and oriented, dress casual, hygiene good. Eye contact fair. Motor activity restless AEB getting up to answer his phone and frequent adjusting in his chair. Speech within normal limits, short remarks. Affect flat, mood irritable. Thoughts linear, logical, no signs of hallucinations or delusions. Reviewed client?s symptom tracker, no risk for suicidal ideation, plan, or intent as of 05/12/18. Client Response/Progress/Benefit: []Client responded well to session, short responses, getting up at times to answer his phone. Client reports feeling ?irritable? today due to back pain. Client shared he did not drink at the he attended this weekend which was one of client?s goals. Client reported in the past he would have gotten drunk, but know client is starting to realize drinking is only a temporary relief that makes client feel worse after. Client has a family session today and he hopes his can learn more about mental health. Client appeared to benefit from receiving praise from peers on client accomplishing his goal. Client to continue IOP to prevent decompensation and increase emotional regulation skills to manage anger and PTSD.
--- NOTE | 2018-05-12 13:36 | BH.MDN ---
Multi-Disciplinary Note - Note Family Time Started:: 10:20 Date: 05/12/18 Purpose of session/treatment goals addressed:: The purpose of this session was to engage client's , Gagandeep, in the treatment process by providing psychoeducation, coping strategies, and ways to improve communication. Another goal was to identify a plan to reduce arguments and increase emotional regulation. Eye Contact:: Poor Motor Activity:: Restless Appearance:: Casual Speech:: Rapid Mood:: Irritable Affect:: Flat Thoughts:: Linear, Logical, No evidence of hallucinations/delusions noted Staff Interventions:: Therapist used active listening and open-ended questions to explore session goals. Therapist provided psychoeducation on PTSD, depression, and trauma to help client's understand client's thoughts, emotions, and behaviors. Therapist used conflict resolution and mediation techniques to de-escalate client and his while discussing issues and concerns. Therapist advocated for client's mental health by addressing symptoms, triggers, and warning signs. Therapist used a worksheet on fair fighting rules to help client and his identify areas they can improve on and what responses to avoid. Therapist encouraged client and his to recognize early warning signs, communicate breaks, and use proactive coping skills to prevent fighting and further escalation at home. Therapist discussed healthy versus unhealthy coping skills, communication, and support. Therapist used motivational interviewing to promote change talk and helped the couple identify potential consequences of not changing communication. Therapist assisted client and his in creating a goal to improve communication and increase emotional regulation. Client Response:: Client and Gagandeep responded well to session, arguing at times but able to de-escalate with therapist's help. Client's goals for the session were to help Gagandeep learn more about mental health and how to more effectively help client. Gagandeep shared she wants client to start making changes and do something. Gagandeep reported client is using unhealthy coping skills and he does not regulate his anger, which per her report, is hurting the family dynamic. Client recognizes that he has used unhealthy coping skills such as drinking which provides a temporary relief, but then makes client feel worse. Client and Gagandeep reported they do not communicate well and often fight unfairly by yelling, cussing, and saying hurtful things to one another. During the session some degrading language was used. Client stated these fights usually result in client being kicked out or breaking something. The couple was willing to discuss ways to improve communication and increase emotional regulation to prevent arguments. The couple and therapist discussed the zones of regulation including triggers and warning signs to pay attention to so that client and Gagandeep can utilize coping skills to calm themselves down. Client shared willingness to verbalize need for breaks, write out his emotions, and exercise. Client verbalized his triggers with his and identified what does not help client when he is upset. Gagandeep shared she has a hard time helping client cope as she has numerous stressors herself. With therapist elicitation, client and Gagandeep realized things will not improve unless they change the way they communicate with one another. Client and Gagandeep open to working on reducing yelling and name calling as well as identifying a daily routine for client that will promote physical regulation. Client was receptive to writing about his anger to release his frustrations in a healthy way. Risks/Concerns:: Client denies suicidal ideation, plan, and intent as of 05/12/18. Client identifies his children as protective factors. Progress Toward Goals/Plan:: Client is demonstrating limited progress towards treatment goals as he continues to report experiencing symptoms of depression, irritability, PTSD, and anxiety nearly every day. Client's shared client has not been utilizing coping skills outside of group which may be contributing to his limited progress. Additionally, issues with communication between client and his may also be contributing to his limited progress as client and his appear to use ineffective, attacking communication which further escalates arguments and exacerbates mental health symptoms. Client was able to avoid drinking at a this weekend which demonstrates progress as client reported in the past he would have drank and felt worse. Client and his to practice fair fighting rules and identify a daily routine of coping skills for client to practice. Time Stopped:: 11:32
--- NOTE | 2018-05-12 14:53 | BH.MDN_ITS ---
Multi-Disciplinary Note - Note Family Time Started:: 10:20 Date: 05/12/18 Purpose of session/treatment goals addressed:: The purpose of this session was to engage client's , Gagandeep, in the treatment process by providing psychoeducation, coping strategies, and ways to improve communication. Another goal was to identify a plan to reduce arguments and increase emotional regulation. Eye Contact:: Poor Motor Activity:: Restless Appearance:: Casual Speech:: Rapid Mood:: Irritable Affect:: Flat Thoughts:: Linear, Logical, No evidence of hallucinations/delusions noted Staff Interventions:: Therapist used active listening and open-ended questions to explore session goals. Therapist provided psychoeducation on PTSD, depression , and trauma to help client's understand client's thoughts, emotions, and behaviors. Therapist used conflict resolution and mediation techniques to de- escalate client and his while discussing issues and concerns. Therapist advocated for client's mental health by addressing symptoms, triggers, and warning signs. Therapist used a worksheet on fair fighting rules to help client and his identify areas they can improve on and what responses to avoid. Therapist encouraged client and his to recognize early warning signs, communicate breaks, and use proactive coping skills to prevent fighting and further escalation at home. Therapist discussed healthy versus unhealthy coping skills, communication, and support. Therapist used motivational interviewing to promote change talk and helped the couple identify potential consequences of not changing communication. Therapist assisted client and his in creating a goal to improve communication and increase emotional regulation. Client Response:: Client and Gagandeep responded well to session, arguing at times but able to de-escalate with therapist's help. Client's goals for the session were to help Gagandeep learn more about mental health and how to more effectively help client. Gagandeep shared she wants client to start making changes and do something. Gagandeep reported client is using unhealthy coping skills and he does not regulate his anger, which per her report, is hurting the family dynamic. Client recognizes that he has used unhealthy coping skills such as drinking which provides a temporary relief, but then makes client feel worse. Client and Gagandeep reported they do not communicate well and often fight unfairly by yelling , cussing, and saying hurtful things to one another. During the session some degrading language was used. Client stated these fights usually result in client being kicked out or breaking something. The couple was willing to discuss ways to improve communication and increase emotional regulation to prevent arguments. The couple and therapist discussed the zones of regulation including triggers and warning signs to pay attention to so that client and Gagandeep can utilize coping skills to calm themselves down. Client shared willingness to verbalize need for breaks, write out his emotions, and exercise. Client verbalized his triggers with his and identified what does not help client when he is upset. Gagandeep shared she has a hard time helping client cope as she has numerous stressors herself. With therapist elicitation, client and Gagandeep realized things will not improve unless they change the way they communicate with one another. Client and Gagandeep open to working on reducing yelling and name calling as well as identifying a daily routine for client that will promote physical regulation. Client was receptive to writing about his anger to release his frustrations in a healthy way. Risks/Concerns:: Client denies suicidal ideation, plan, and intent as of . Client identifies his children as protective factors. Progress Toward Goals/Plan:: Client is demonstrating limited progress towards treatment goals as he continues to report experiencing symptoms of depression, irritability, PTSD, and anxiety nearly every day. Client's shared client has not been utilizing coping skills outside of group which may be contributing to his limited progress. Additionally, issues with communication between client and his may also be contributing to his limited progress as client and his appear to use ineffective, attacking communication which further escalates arguments and exacerbates mental health symptoms. Client was able to avoid drinking at a this weekend which demonstrates progress as client reported in the past he would have drank and felt worse. Client and his to practice fair fighting rules and identify a daily routine of coping skills for client to practice. Time Stopped:: 11:32
--- NOTE | 2018-05-12 16:11 | BH.MTP_ITS ---
Treatment Plan Review Date of Admission:: 04/08/18 Date of Treatment Plan Review:: 05/09/18 Admitting Diagnoses:: Major depressive disorder F 33.2. PTSD Current Diagnoses:: Major depressive disorder F 33.2. PTSD Patient's Response to Treatment:: Client's response to treatment has been variable as client missed two weeks of IOP due to car issues and other stressors. Client recently returned to [facility] on 05/07/18 reporting numerous stressors including the loss of a friend by gunshot wound. Client continues to endorse severe symptoms of depression, anxiety, and PTSD. Client reports increased awareness of triggers, symptoms, and some warning signs, but he continues to report difficulty implementing healthy coping skills to regulate his emotions. Client has reduced some unhealthy coping skills such as drinking and punching things which demonstrates progress. Client is receptive to bringing his in to help with communication, support, and ongoing symptom management. Client reports motivation to improve functioning and appears open to learning new coping skills. Overall, client is an active participant, when at [facility], who provides insight and supportive statements to peers. Client struggles at times with engaging in side conversations, but he is easily redirected. Client has followed through with trying healthy coping skills discussed in group and individual sessions, but reports difficulty with consistency and proactive use. Status of Current Problems and Symptoms: Client's progress is limited as he did not attend [facility] for two weeks due to car issues which may have impacted his ability to learn and apply healthy coping skills. Client continues to endorse a depressed mood, irritability, low energy, and anhedonia. Client?s friend recently of a gunshot wound and client recognizes he is grieving. Client reports ongoing intrusive memories of work-related trauma, avoidance, and hypervigilance to noises. Client shared he cannot tolerate loud noises and feels unable to return to work due to the severity of his mental health symptoms. Client endorses ruminative anxiety which is due to work, home, and financial stressors. Client reports his symptoms are impacting his ability to regulate emotions, concentrate, and focus. Client also continues to report ongoing back pain that exacerbates his mental health symptoms, specially his irritability. Problem #1 Problem Name:: Pt. will decrease depressive symptoms, anhedonia, and agitation Status of Goals:: Client has not accomplished his treatment goal as he continues to endorse a depressed mood, irritability, anhedonia, difficulty concentrating, and low motivation. Client's mood may be further impacted due to a recent loss. Client and therapist have discussed coping skills for depression, but client continues to report difficulty implementing healthy strategies. Client is currently using music and yard work to cope which demonstrates some progress. Client and therapist have not yet been able to work on challenging cognitive distortions due to current stressors and issues with attendance. At admission client scored 8 out of 8 (severe) for depression and 4 out of 4 (severe) for an cherry. At review, client's scores remained unchanged at 8 and 4 for depression and anger respectively. Client and therapist currently working on establishing healthy coping routines and verbalizing emotions. Team Recommendations:: Client recommended to continue working on treatment goal as he continues to endorse depressive symptoms, low motivation, anhedonia, and irritability. Client also reports difficulty recognizing warning signs of depression and anger which makes it challenging for client to use healthy coping skills. Client and therapist currently working on establishing a daily routine to promote use of coping skills, exercise, and accomplishing tasks. Therapist and client also working on communicating needs and recognizing early warning signs. Client is recommended to follow up with outpatient therapist, Juan Luis Long for continuity of care. Problem #2 Problem Name:: Pt. will reduce anxiety and rumination and increase management of PTSD Status of Goals:: Client has not accomplished his treatment goal as he continues to report severe anxiety and PTSD symptoms. Client reports increased awareness of PTSD symptoms and has learned at least 2 coping skills to manage anxiety and PTSD, but client reports difficulty implementing coping skills and regulating emotions. At admission, client scored 12 out of 12 (severe) for anxiety and 4 out of 4 (severe) for anger. At review, client's scores remained at 12 and 4 for anxiety and anger respectfully. Client and therapist currently working on increasing emotional release and mindfulness skills to manage PTSD and anxiety. Team Recommendations:: Client recommended to continue working on treatment goal as client has gained awareness to PTSD triggers, but he continues to endorse hypervigilance, avoidance, and intrusive memories of the work-related event. Client continues to report difficulty regulating his emotions and trauma triggers which makes it hard for client to be around people and loud noises. Client recommended to bring his in to [facility] to help increase understanding of client's trauma triggers, mental health needs, and coping skills. Client also [facility] to [facility] in [place] for trauma-focused therapy.
--- NOTE | 2018-05-13 09:05 | BH.SGPN.GN ---
Behaviors/Verbalizations/Mental Status: [] Pt eye contact good, casually dressed, motor activity appropriate, speech normal rate and tone, mood euthymic, congruent affect, thoughts linear and intact, no evidence of delusions or hallucinations. Reviewed client?s symptom tracker patient indicated a suicidal ideations a 2 out of 5 with suicidal intent is 0 out of 5. Patients IOP individual therapist notified of suicidal ideation. Client Response/Progress/Benefit: [] Client expressed a lot of anger towards the uncertainty of his court case with the accident that occurred while at work. Client expresses a lot of frustration and anger towards his medical doctors do not seem to want to fix the issue but instead offer client various pain pills. Client reported he received a phone call yesterday telling him that he has been signed off is fit to return to work. Client shared this is increased agitation because he knows his body cannot handle himself going back to labor and his anger will likely result in him being physically aggressive towards someone. Client only able to identify one positive to be knowing his and kids love him. Client made positive comments and suggestions to peers. Client seemed to benefit from having option to express his anger in a healthy manner. Client recognizes being physically aggressive or throwing things will not solve his issues but is continuing to struggle with finding healthy coping that still releases how he feels. Client to continue IOP level of care to decrease anger, increased healthy coping, and prevent decompensation. Narrative Note: []
--- NOTE | 2018-05-13 10:10 | BH.SGPN.GN ---
Behaviors/Verbalizations/Mental Status: []Client alert and oriented, dress casual, hygiene good. Eye contact good. Motor activity appropriate. Speech loud. Affect constricted, mood irritable. Thoughts linear, logical, no signs of hallucinations or delusions. Client Response/Progress/Benefit: [] Client responded well to session, active participant. Client appeared to connect with the quote sharing, ?life experiences make us perceive the world different.? Client discussed how fear, depression, anger, and anxiety can impact one?s ability to communicate. Client reported when he is depressed he shuts down and internalizes his emotions. Client shared it is important to be able to communicate during stressful situations ?so you don?t get worse.? Client participated in the group activity and stated it was challenging to work through the communication roadblocks at times, but client was able to stay calm. Client appeared to benefit from gaining insight to how his communication is impacted by emotions. Progress noted as shown by client?s increased contributions, but he continues to struggle with verbalizing his emotions in a healthy way.
--- NOTE | 2018-05-13 11:10 | BH.SGPN.GN ---
Behaviors/Verbalizations/Mental Status: []Client alert and oriented, dress casual, hygiene good. Eye contact good. Motor activity appropriate. Speech within normal limits. Affect constricted, mood irritable Thoughts linear, logical, no signs of hallucinations or delusions. Client Response/Progress/Benefit: []Client responded well to session, active participant. Client appeared to connect with the zones of regulation. Client shared ?I?m in the red all the time.? Client gained insight that he does not get a chance to calm down as he continues to be re-triggered which makes client enter the ?red zone? repeatedly. Client identified what he feels like and acts like in the different zones of regulation. Client able to identify coping skills to help improve his mood, reduce anger, and prevent outbursts. Client shared ?all I know is how to yell and scream.? Client was receptive to feedback from peers on healthy ways to manage anger such as exercise, taking breaks, and listening to music. Client appeared to benefit from increasing awareness of the different coping skills needed for different zones of regulation. Client set a goal for the week to focus on his positives and not things out of his control. Client to continue IOP to prevent decompensation and increase emotional regulation skills.
--- NOTE | 2018-05-13 14:56 | BH.COMM ---
Communication Note - Communication with Client Communication Note: Therapist followed up with client as he indicated increased suicidal ideation on his daily symptoms tracker. Client shared he is feeling increased anger regarding his current situation, but he does not have intent or a plan to harm himself. Client reports ability to maintain safety.
--- NOTE | 2018-05-15 14:24 | BH.COMM ---
Communication Note - Communication with Client Communication Note: Therapist attempted to call client's outpatient therapist, Juan Luis Long, for continuity of care purposes. Therapist unable to reach Jua nLuis and left a message.
--- NOTE | 2018-05-16 09:05 | BH.SGPN.GN ---
Behaviors/Verbalizations/Mental Status: Client maintained good and consistent eye contact throughout. He was casually dressed, appropriate grooming, motor activity at client baseline however generally restless - sitting and standing, bouncing legs, rubbing head with hands , speech normal rate and tone, mood euthymic, displaced irritability, affect congruent, thoughts linear and logical, no evidence of delusions or hallucinations. Therapist reviewed client?s symptom tracker to assess for intensity of mental health symptoms and identify risk for suicide. No signs of suicidal ideation, plan, or intent to date. Client Response/Progress/Benefit: Client receptive of session and was a positive participant throughout. He did well to provide supportive feedback to fellow participants who were struggling with various stressors. Client discussed the various strategies that he has been attempting to implement in order to help improve his ability to regulate his mood and improve overall mental health. Client went on to describe avoiding drinking alcohol as well as using strategies such as reminding himself of the consequences of unhealthy coping, using music, and his fantasy football league. Client benefitted from reflecting upon areas of growth as well as ongoing struggles and is recommended continued IOP tx to promote continued progress in managing mental health symptoms and emotion regulation skills.
--- NOTE | 2018-05-16 10:20 | BH.SGPN.GN ---
Behaviors/Verbalizations/Mental Status: []Pt alert and oriented, eye contact fair, casually dressed, motor activity restless AEB wringing of hands, speech loud and tone WNL, mood euthymic and easily agitated, affect congruent, no evidence of delusions or hallucinations. Client Response/Progress/Benefit: Pt active participant AEB contributing to discussion and attnetive to others. Pt connected with quote that if only focus on end result you will miss out on everything else. Pt related to peers about being all or nothing when it comes to goals; if not perfect then has failed. Pt connected impact all or nothing thinking has on success or failure with goals. Pt made many contributions throughout discussion about setting SMART goals. PT reported he needs to focus on setting attainable goals because some of the goals he sets are unrealistic which results in failure. Pt seemed to benefit from rehearsing setting short term SMART goals.
--- NOTE | 2018-05-16 12:15 | PCM.PN.BLA ---
Progress Note Patient seen in follow-up for major depressive disorder single episode severe F 33.2, PTSD, nicotine use disorder. History is been obtained per interview with patient, discussion with staff, review of chart. Case discussed with treatment team. Chief complaint-PTSD/depression/anxiety Tense. A lot of stuff going on. Interim history Moderate ruminative anxiety associated with multiple stressors. Ongoing PTSD symptoms with intrusive thoughts of work-related accident, hypervigilance and avoidance. Reports that he is unable to tolerate loud noises. Anxiety regarding finances and ongoing Worker's Compensation case. Decreased focus and concentration. Acknowledges grief. Friend recently of gunshot wound. Moderate depressive symptoms persist. Passive intermittent thoughts of . Last thoughts of more than 1 week ago. No suicide plan or intent. Feels able to maintain safety. Lives for family and because of temple reasons. No homicidal ideation. No symptoms consistent with psychosis. Sleep generally variable. Interrupted by anxiety and pain. Generally in bed by midnight and up by 5 or 6 AM. Appetite fair. Complaint of nausea. Denies vomiting. Has not yet started trazodone or Zofran. Reports that he has been forgetting to pick prescriptions up. Compliant with Zoloft 100 mg daily. Mental status exam Alert and oriented. No acute distress. Ambulatory with normal gait and station. Casually dressed and groomed. Appropriate hygiene. Cooperative with interview. Good eye contact. No psychomotor agitation or retardation. Mood depressed. Affect congruent. Speech is clear and of regular rate and volume. Language fluent. Thought process organized. Associations logical. Thought content significant for ruminative anxiety and themes of depression. Intermittent passive suicidal ideation. No suicide plan or intent. Feels able to maintain safety. No homicidal ideation related to her detected. No evidence of psychosis related to her detected. Immediate recent and remote memory grossly intact. Attention and concentration are fair. Estimated intelligence fund of knowledge average. Judgment and insight are improving. Lab work will be obtained as needed Diagnosis Major depressive disorder single episode severe F 33.2 PTSD Nicotine use disorder Cannabis use Multiple orthopedic injuries February 2017 Plan Continue IOP as the structured setting is necessary to prevent decompensation and maintain gains. Risks benefits alternative of medications discussed with patient. Patient acknowledges understanding. Continue Zoloft 100 mg daily. Encouraged to start trazodone 50-100 mg p.o. nightly to assist with sleep as needed. Encouraged to start Zofran 4 mg p.o. daily as needed for nausea. Start Atarax 25-50 mg p.o. daily as needed anxiety. 20 minutes of Insight oriented psychotherapy provided. Encouraged to continue follow-up at [facility]. Encouraged to follow-up with primary care physician regarding GI symptoms. Encouraged alcohol cannabis and nicotine abstinence. Referral provided for the [facility] for focused trauma therapy. Patient acknowledges understanding and is in agreement with plan. Feels able to maintain safety. Agrees to seek help or emergency care feeling unsafe to self or others.
--- NOTE | 2018-05-19 15:36 | BH.COMM ---
Communication Note - Communication with Client Communication Note: This therapist spoke with client's worker's compensation bottle caser, Josie, on the phone to gather more information on client's current situation, provide client updates, and advocate for client's mental health and well-being. Josie was unable to provider further updates and stated she will add recent faxes providing client's IOP updates to client's file when she receives them. Therapist to follow up with client.
--- NOTE | 2018-05-19 15:42 | BH.COMM_ITS ---
Communication Note - Communication with Client Communication Note: This therapist spoke with client's worker's compensation rn field case manager, Josie, on the phone to gather more information on client's current situation, provide client updates, and advocate for client's mental health and well-being. Josie was unable to provider further updates and stated she will add recent faxes providing client's IOP updates to client's file when she receives them. Therapist to follow up with client.
== END 2018-05-18 23:59 ==
LOC: BHIOP 08:55
PROVIDERS: Visit Provider Psychiatry & Neurology Psychiatry
DX: F33.2 Major depressive disorder, recurrent severe without psychotic features (principal); F43.10 Post-traumatic stress disorder, unspecified; Z72.0 Tobacco use; F12.90 Cannabis use, unspecified, uncomplicated
CPT/HCPCS: 90833; 99214; H0035; H2012; H2020; 90832; 90847

== ENCOUNTER 2018-05-20 09:00 | Outpatient (RCR) | payer MEDICAID, SELFPAY ==
--- NOTE | 2018-05-20 09:00 | BH.SGPN.GN ---
Behaviors/Verbalizations/Mental Status: [] Pt eye contact fair, casually dressed, motor activity restless, speech loud, mood anxious and agitated, congruent affect, thoughts linear and logical, no evidence of delusions or hallucinations. Reviewed client?s symptom tracker, no signs of suicidal ideation, plan, or intent as of today. Client Response/Progress/Benefit: Client reported much is changed because he still dealing with pain in his back and leg and dealing with the compensation situation. Client reported he still has not gotten paid because he feels the doctors and worker's compensation employees are not doing their job properly. Client expressed anger towards the people involved in dealing with the situation because he does not see how he could return to work given how much pain he is in on a daily basis. Client shared he is going to see his pain management doctors today and help hopefully can address getting some way to fix the problem versus giving him pain medications because that is not what he would like to do. Client shared a positive is he still has not drink any alcohol because he recognizes when he drinks it just makes his situation worse. Client making supportive comments to peers and giving suggestions. Client continuing to struggle with constant anger and feeling tense especially given recent stressor of the worker's compensation situation being out of his control. Client has shown progress with many being able to maintain sobriety and trying to walk away when feeling angry. Client to continue IOP level of care to decrease anger, increase healthy coping skills, and prevent decompensation.
--- NOTE | 2018-05-20 10:05 | BH.SGPN.GN ---
Behaviors/Verbalizations/Mental Status: []Client alert and oriented, dress casual, hygiene good. Eye contact good. Motor activity restless. Speech within normal limits. Affect constricted, mood irritable. Thoughts linear, logical, no signs of hallucinations or delusions. Client Response/Progress/Benefit: []Client responded well to session, providing good insight to discussion. Client appeared to connect with the quote sharing, ?we either adapt or get confined by musa.? Client discussed things that keep people stuck from achieving mental wellness, but shared it is one?s negative thinking patterns that truly keep a person stuck. Client identified negative thoughts that have kept client trapped such as ?it?s always my fault, nothing will get better, I?ll never get back to feeling good.? ?Client stated when she had these thoughts it made client feel low, ruminate, and isolate. Client appeared to benefit from gaining awareness how thought patterns impact mental health. Client progressing as he has not drank in a week and client reports reduced impulsive behaviors from anger. However, client continues to struggle with regulating emotions.
--- NOTE | 2018-05-20 10:51 | BH.COMM ---
Communication Note - Communication with Client Communication Note: This therapist spoke with client's worker's compensation bilingual patient support caseworker, Josie, on the phone to gather more information on client's current situation, provide client updates, and advocate for client's mental health and well-being. Josie was unable to provider further updates and stated she will add recent faxes providing client's IOP updates to client's file when she receives them. Therapist to follow up with client.
--- NOTE | 2018-05-20 11:10 | BH.SGPN.GN ---
Behaviors/Verbalizations/Mental Status: []Client alert and oriented, casual dress, hygiene good. Eye contact good. Motor activity restless. Speech within normal limits. Affect congruent, mood irritable. Thoughts linear, logical, no signs of hallucinations or delusions. Client Response/Progress/Benefit: []client responded well to session, receptive to gentle challenging from peers. Client identified ?I?m never going to stop the pain that I have all the time? as a current negative thought keeping client trapped. Client reported when he thinks this client becomes ?pissed? and wants to break things and scream. Client shared his negative thought is realistic as client lives with physical pain every day. However, with group challenging, client realized his thought had some cognitive distortions that keep client from having hope and moving forward. Client reframed the thought to ?I have a family that needs me it?s not all bad.? Client stated this thought improves his mood and open to doing things that will make him happy. Client helped the group identify strategies to challenge negative thoughts. Client seemed to benefit from challenging a current negative thought. Client to continue IOP to increase awareness of negative thought patterns keeping client stuck.
--- NOTE | 2018-05-21 09:05 | BH.SGPN.GN ---
Behaviors/Verbalizations/Mental Status: []Client alert and oriented, casual dress. Eye contact good. Motor activity restless-adjusting his shirt and moving in his chair. Speech-tangential, loud, rapid at times. Affect bright, mood euthymic, irritable. Thoughts linear, logical, no signs of hallucinations or delusions. Reviewed client?s symptom tracker, no risk for suicidal ideation, plan, or intent as of 05/21/18. Client Response/Progress/Benefit: []Client responded well to session, providing supportive statements, but off topic and using inappropriate language at times. Client reports feeling ?jittery? today which client contributes to caffeine and starting a new medication. Client identified his current positives as ?I haven?t broke or punched nothing? and client has not drank in a week. Client shared he continues to feel irritable and anxious about his worker?s compensation case, but client is actively taking steps to manage this stressor. Client reports some ongoing communication issues with his , though he shared things have improved. Client appeared to benefit from reflecting on progress and verbalizing his emotions. Client shared ?being here and getting it all out has actually been really helpful.? Client appeared to benefit from connecting with peers. Client to continue IOP to prevent decompensation and increase emotional regulation.
--- NOTE | 2018-05-21 10:53 | BH.COMM_ITS ---
Communication Note - Communication with Client Communication Note: This therapist spoke with client's worker's compensation geriatric case manager, Josie, on the phone to gather more information on client's current situation, provide client updates, and advocate for client's mental health and well-being. Josie was unable to provider further updates and stated she will add recent faxes providing client's IOP updates to client's file when she receives them. Therapist to follow up with client.
--- NOTE | 2018-05-21 13:56 | BH.MDN_ITS ---
Multi-Disciplinary Note - Note 30-min Individual Time Started:: 11:12 Date: 05/21/18 Purpose of session/treatment goals addressed:: The purpose of this session was to discuss mindfulness strategies and establish a daily routine incorporating those strategies. Another goal was to increase emotional regulation and discuss progress. Other topics included communication and physical regulation. Eye Contact:: Good Motor Activity:: Restless - reported feeling hot which triggers restlessness and anxiety. Appearance:: Casual Speech:: Rapid, Other - loud Mood:: Anxious Affect:: Constricted Thoughts:: Racing, No evidence of hallucinations/delusions noted Staff Interventions:: Therapist used active listening and open-ended questions to explore client's current stressors, concerns, symptoms, and progress. Therapist and client discussed [facility]'s [facility]. Therapist helped client identify mindfulness skills and exercises he could incorporate into his daily routine. Therapist and client discussed the benefits of using daily mindfulness and physical regulation. Therapist used the PLAN tool to help client prepare for how he might feel when triggered and what coping skills client can utilize. Therapist gave client homework to create a daily routine that will promote mindfulness and emotional regulation. Therapist to talk with AC regarding client's memory concerns. Client Response:: Client responded well to session, actively using his coping skills when triggered by temperature in IOP building. Client stated his pain doctor is going to be the physician of records now for his worker's compensation which client hopes will help his case and reduce stress. Client reports ongoing difficulty managing his PTSD and issues with short-term memory. Client recognizes his mood and use of healthy coping skills have improved over the past few weeks as client reports, I still haven't drank or broken anything. Client also shared having a more positive outlook and trying to focus on the good in his life. Client was receptive to discussing mindfulness skills and creating a daily routine. Client shared he plans to journal, organize his barn so he can exercise in it, and start swimming in the mornings. Client reported he is also interested in trying yoga, learning guitar, and trying standup comedy. Client stated willingness to try one mindful activity in the morning and one in the evening. Client to create his routine for homework. Client and therapist discussed the PLAN tool and how it is important for client to prepare for the emotions he may feel when facing a trauma trigger. Client reported having increased awareness, but still not feeling ready to face his work trauma triggers. Client stated he has been trying to use healthy coping skills to manage his emotions, but he continues to struggle at times. Client reports plan to call [facility] again this week to schedule an intake. Risks/Concerns:: Client denies suicidal ideation, plan, and intent as of 05/21/18. Progress Toward Goals/Plan:: Client demonstrating progress towards treatment goals as he reports increased awareness of triggers and has been able to implement healthy coping skills to avoid breaking things, drinking, or screaming at people to release anger. Client also reports a more positive outlook and acceptance of stressors out of his control as shown by client's report of I'm allowed to be pissed but a pity republican won't help. Client continues to report ongoing symptoms of PTSD, difficulty with short-term memory, and irritability. Client was recommended to follow up with [facility] for the trauma-focused IOP. Client to continue IOP to increase emotional regulation and coping skill maintenance. Client to create a daily routine that incorporates mindfulness and exercise to promote stress management. Time Stopped:: 11:45
--- NOTE | 2018-05-22 09:05 | BH.SGPN.GN ---
Behaviors/Verbalizations/Mental Status: [] Pt eye contact good, casually dressed, motor activity appropriate, speech loud, normal rate, mood euthymic and agitated, congruent affect, thoughts linear and intact, no evidence of delusions or hallucinations. Reviewed client?s symptom tracker, no signs of suicidal ideation, plan, or intent as of today. Client Response/Progress/Benefit: [] Client reported he is feeling a little more mellow this morning compared to yesterday. Client shared he still a lot of tension with all the stressors but recognizes his body is a little less tense attributing this to his medications. Client shared that he is a little concerned his medication is making him too sleepy which is why he is feeling more mellow today. Client reported some positives include: His mow the yard yesterday, continuing to abstain from alcohol use, communicated without screaming to his about how he is feeling, and is going to a combination of tonight with his . Client demonstrating progress with being able to recognize positives in his life which initially when client started the program was a struggle. Client to continue IOP level of care to maintain gains, increase emotional regulation, and prevent decompensation. Narrative Note: []
--- NOTE | 2018-05-22 10:10 | BH.SGPN.GN ---
Behaviors/Verbalizations/Mental Status: []Client alert and oriented, hygiene good, dress casual. Eye contact good. Motor activity appropriate. Speech within normal limits-joking at times. Affect constricted, mood euthymic, irritable. Thoughts linear, logical, no signs of hallucinations or delusions. Client Response/Progress/Benefit: []Client responded well to session, active participant. Client appeared to connect with the quote sharing, ?every opportunity can be an opportunity to grow and learn if we let it.? Client identified crisis as a situation that shakes up a person?s life and can leave a person ?frozen.? Client reported anything could be a crisis ?even the TV breaking? ?depending on one?s current life stressors and emotions. Client stated everyone angus and experiences crisis differently. Client selected a visual that represents client?s thoughts and emotions during crisis. Client shared in crisis he feels ?like at any moment I can just snap? and become on edge. Client stated in crisis client enters ?fight? mood and bottles up his emotions until they explode. Client appeared to benefit from gaining insight to what crisis is like for him. Progress noted as client has refrained from punching or breaking things and drinking. Client to continue IOP to increase emotional regulation and mood stability.
--- NOTE | 2018-05-22 11:10 | BH.SGPN.GN ---
Behaviors/Verbalizations/Mental Status: []Client alert and oriented, hygiene good, dress casual. Eye contact fair. Motor activity restless-needing to stand at the end of session. Speech within normal limits, using sarcasm at times. Affect constricted, mood irritable. Thoughts linear, logical, no signs of hallucinations or delusions. Client Response/Progress/Benefit: []Client responded well to session, sarcastic at times, but redirected easily. Client identified his biggest warning signs for crisis as apathy ?I just don?t care about the consequences? difficulty concentrating and increased impulsive behaviors. Client stated, ?I can?t manage crisis at all,? but with gentle challenging client recognized he has been improving with managing his emotions. Client helped the group identify coping skills for crisis. Client created a crisis survival kit, but client reported he will not use the kit. Client used humor to describe his items and appeared agitated. Client appeared to benefit from recognizing early warning signs and reflecting on progress with emotional regulation. Client demonstrating progress as shown by his report of not drinking or breaking things when angry, but he continues to struggle with verbalizing his emotions and using proactive coping skills.
--- NOTE | 2018-05-23 15:14 | BH.COMM ---
Communication Note - Communication with Client Communication Note: Client called in to discuss concerns related to potential discharge date with individual therapist as well as ongoing concerns regarding short-term memory. Client unable to speak with individual therapist as she had left for the day. This therapist discussed with client psychiatrist recommendations of receiving more intensive treatment for PTSD symptoms to address difficulties with memory and that client would not need to seek psychiatric medication services at this time regarding memory. Therapist also encouraged client to communicate with individual therapist about discharge planning from IOP program when he returns for next group session.
--- NOTE | 2018-05-27 10:20 | BH.SGPN.GN ---
Behaviors/Verbalizations/Mental Status: [] Pt eye contact good, casually dressed, motor activity restless, speech normal rate and tone, mood anxious and tense, congruent affect, thoughts linear and intact, no evidence of delusions or hallucinations. Client Response/Progress/Benefit: [] Client active participant as evidenced by contributions throughout discussion and attentive to others' comments. Client reported although he can connect with the quote that the greatest weapon against stress is to choose one thought over another, he recognizes he struggles with choosing a more positive thought. Client shared he tends to go with the easiest and first thought versus challenging reflecting on whether the thought is helpful or not. Client reported he can no some progress in himself with attempting to stop himself before being reactive or impulsive. Identified current stressors to include: Constant pain, paperwork for workmen's comp other people, and feeling out of control in his personal life. Client shared he feels like his stressors are his overfilled which tends to result in anger, tenseness and at times lashing out at others. Client had insight that the way he tends to do with his stress only complicates his situation. Client seem to benefit from increased awareness of his current stressors as well as insight into how his response to stress impacts him. Narrative Note: []
--- NOTE | 2018-05-27 11:30 | BH.SGPN.GN ---
Behaviors/Verbalizations/Mental Status: [] Pt eye contact good, casually dressed, motor activity restless and tense, speech normal rate and tone, mood anxious and agitated, congruent affect, thoughts linear and intact, no evidence of delusions or hallucinations. Client Response/Progress/Benefit: []Pt responded well to session AEB contributing to discussion and listening to others. Pt took a leadership role during activity and identified he stayed calm throughout activity by focusing on the end goal and breathing. Pt able to identify various healthy ways to manage and deal with stress. Pt identified his goal for the day is to listen to music as a way of coping so I don't scream at anyone. Seemed to benefit from increasing repertoire of healthy strategies to reduce stress. Narrative Note: []
--- NOTE | 2018-05-27 13:51 | BH.MDN ---
Multi-Disciplinary Note - Note 30-min Individual Time Started:: 12:40 Date: 05/27/18 Purpose of session/treatment goals addressed:: The purpose of this session was to address client's current stressors and identify coping skills that will help client regulate anxiety and anger for an upcoming evaluation. Another goal was to review progress. Eye Contact:: Fair Motor Activity:: Restless Appearance:: Casual Speech:: Rapid, Other - loud Mood:: Anxious, Irritable Affect:: Constricted Thoughts:: Linear, Logical, No evidence of hallucinations/delusions noted Staff Interventions:: Therapist used open-ended questions to gather information on client's current emotions and thoughts about an upcoming evaluation. Therapist gave client a safe environment to verbalize and process current stressors. Therapist helped client identify warning signs for anxiety and anger as well as coping skills that will help regulate his mood. Therapist also assisted client in recognizing behaviors or situations that make his anxiety and anger worse and encouraged client to avoid or reduce these. Therapist gently challenged client on his external locus of control and used strengths perspective to help client recognize areas he has progressed with managing his mental health symptoms. Therapist and client created a list of coping skills client can use tomorrow before, during, and after his evaluation. Therapist also encouraged client to write down his thoughts and communicate his triggers at the evaluation to prevent client from using aggressive communication. Client Response:: Client responded well to session, open to meeting with therapist. Client reported multiple stressors including an issue with his children and an upcoming mental health evaluation for workers compensation. Client shared he is trying to keep himself calm, but it's just one thing on top of another. Client stated he wants to be able to control his anger and communicate assertively tomorrow during his evaluation, but client feels that may be unlikely as in the past client has felt invalidated and not taken seriously. Client open to discussing coping skills that could help reduce stress before client's appointment. Client shared he can go swimming in the morning and listen to relaxing music on his drive over. Therapist also suggested coming to [facility] as another option for the morning as well. Client able to recognize what makes his anger and anxiety worse such as arguments on the phone, distractions, and last minute stuff. Client and therapist established a plan to help client avoid or lessen these triggers. Client reported if others are in a good mood client is in a good mood. Client receptive to therapist's gently challenging on external locus of control. Client identified techniques that could help client regulate his emotion during the evaluation such as holding a cold-water bottle, writing out thoughts, and sharing his triggers with the senior technical trainer. Client was also receptive to having a mindfulness cue that would help client remember positives in his life. Risks/Concerns:: Client denies suicidal ideation, plan, and intent as of 05/27/18. Client reports he would never harm himself because he loves his family. Progress Toward Goals/Plan:: Client is demonstrating progress towards treatment goals as shown by his report of not using alcohol as a coping skill, improvements with decision-making when angry, and increased positive thinking. Client reflected on progress and stated, I'm not where I want to be yet, but I'm heck of a lot better than I was. Client shared he has been doing better with communicating and practicing healthy coping skills, but client continues to struggle with managing stressors out of his control. Client uses mowing and music to regulate emotions, which helps client, but client could benefit from a variety of coping skills he can use in various settings. Client reports ongoing issues with memory. Client to continue IOP to prevent decompensation and increase emotional regulation. Client was referred to [facility] for [facility] and client has an appointment this Saturday. Time Stopped:: 13:15
--- NOTE | 2018-05-28 09:00 | BH.SGPN.GN ---
Behaviors/Verbalizations/Mental Status: [] Alert and oriented. Eye contact is good. Motor activity is appropriate. Appearance is casual. Speech is appropriate. Mood is irritable and anxious Affect is congruent. Thoughts are linear and logical. No hallucination or delusions noted. Client Response/Progress/Benefit: [] Pt was an active participant in group discussion. Emotions for today is not bad. States that group yesterday allowed him to vent his frustrations and he has felt great since. Reports that he slept well last night and even managed to control his anger more effectively this AM. He provided insight on how he is starting to let go of some rigid thoughts and beliefs which increase his anger and depression such as I can never be late. In the past he reports that if he was late he would often scream, yell, and drive erratically. This AM he was late and he reports stating I'm late but it will be fine which was effective. Utilize some thought-stopping strategies as well as reframing. Benefited from group support and venting of emotions. Progress noted per pt report. Will continue in IOP to prevent decompensation and maintain gains. Narrative Note: []
--- NOTE | 2018-05-28 10:15 | BH.SGPN.GN ---
Behaviors/Verbalizations/Mental Status: []Client alert and oriented, casual dress. Eye contact good. Motor activity restless. Speech loud, overall within normal limits. Affect constricted, mood irritable. Thoughts linear, logical, no signs of hallucinations or delusions. Client Response/Progress/Benefit: []client responded well to session, engaged in discussion. Client participated in the discussion of the emotions associated with change. Client reported that when he thinks of change he thinks of ?chaos.? Client shared that one?s emotions about change can ?make someone resist change? even if the change is positive. Client appeared to benefit from processing how emotions influence how a person manages change in life. ?Client demonstrating some progress towards treatment goals as shown by his increased engagement in group, but he continues to struggle with regulating his emotions and focusing on stressors in his control.
--- NOTE | 2018-05-28 11:20 | BH.SGPN.GN ---
Behaviors/Verbalizations/Mental Status: []Client alert and oriented, casual dress. Eye contact good. Motor activity appropriate. Speech within normal limits. Affect congruent-making jokes, mood euthymic. Thoughts linear, logical, no signs of hallucinations or delusions. Client Response/Progress/Benefit: []Client responded well to session, active participant. Client engaged in the group activity, taking on a leadership role. The group identified communication and bouncing back from mistakes as strategies to improve the change process. Client shared he has experienced positive change in the past. ?Client identified cutting back on his pain medication as a positive change he wants to make. Client appeared to benefit from setting a goal to help client make positive change. Client to continue IOP to increase mood stability and regulation of anger.
--- NOTE | 2018-05-30 15:13 | BH.MDN ---
Multi-Disciplinary Note - Note 30-min Individual Time Started:: 11:20 Date: 05/30/18 Purpose of session/treatment goals addressed:: The purpose of this session was to process client's thoughts, emotions, and actions from an acute stressor. Another plan was to ensure safety and identify coping skills to help client regulate his emotions in a safe way. Eye Contact:: Avoidant Motor Activity:: Slowed Appearance:: Disheveled Speech:: Rapid Mood:: Irritable, Depressed, Other - defeated Affect:: Flat Thoughts:: Racing, No evidence of hallucinations/delusions noted Staff Interventions:: Therapist used active listening and emotional validation to provide a safe space for client to verbalize an acute stressor client was facing. Therapist used open-ended questions to gather information on the situation and client's behavioral responses to the situation. Therapist discussed healthy coping skills with client and helped client reflect on how his actions can positively or negatively impact the outcome. Therapist and client talked about healthy emotional release coping skills client can use today. Therapist used strengths perspective to identify positives. Client Response:: Client responded well to session, appeared fatigued and depressed, but receptive to discussion with therapist. Client shared he has never felt angrier or more down than client felt yesterday. Client reported an incident has occurred with his children that per client's report was unexpected and unfair. Client shared he did not respond well to the event and screamed at someone over the phone. Client stated he was so upset he would have done worse if client was with the man in person. Client shared he is exhausted from not sleeping, screaming, and breaking things yesterday. Client shared he also drank, but he was able to control the amount of alcohol he consumed which demonstrates progress. Client reported he hurts emotionally because client cannot do anything about the situation and he has limited answers. Client and therapist discussed how client's actions can positively or negatively impact the outcome, so it is important for client to manage his emotions and anger. Client stated awareness of this and shared he called back and apologized to the man he yelled at on the phone. Client and therapist discussed healthy coping skills for today such as avoiding triggering people and taking time for self-care and mindfulness. Client also has an appointment at [facility] today which client is hopeful about. Client recognized coming to [facility] today as a positive and shared he realizes he has made progress despite this recent setback. Risks/Concerns:: Client denies suicidal ideation, plan, and intent as of 05/30/18. Client reports due to recent situation he is having increased thoughts of hurting others, denies plan or intent. Client reports ability to maintain safety with himself and others. Progress Toward Goals/Plan:: Client reports yesterday was a big setback in his mental health treatment, however, upon further exploration client recognized that he did not revert back to all forms of unhealthy coping and he did, in fact, use healthy skills such as apologizing and not hitting anyone. Client continues to endorse irritability, anxiety, symptoms of PTSD, and difficulty regulating his emotions. Client reports feeling drained and exhausted today, but he reports plan to follow through with his appointment at [facility] this afternoon. Client was also receptive to discussing healthy coping and consequences with therapist during session which demonstrates progress. Client to continue IOP to promote mood stability and emotional regulation during this difficult time. Client has an appointment today at [facility] for an intake for their trauma-focused IOP. Time Stopped:: 11:45
--- NOTE | 2018-05-30 15:20 | BH.MDN_ITS ---
Multi-Disciplinary Note - Note 30-min Individual Time Started:: 11:20 Date: 05/30/18 Purpose of session/treatment goals addressed:: The purpose of this session was to process client's thoughts, emotions, and actions from an acute stressor. Another plan was to ensure safety and identify coping skills to help client regulate his emotions in a safe way. Eye Contact:: Avoidant Motor Activity:: Slowed Appearance:: Disheveled Speech:: Rapid Mood:: Irritable, Depressed, Other - defeated Affect:: Flat Thoughts:: Racing, No evidence of hallucinations/delusions noted Staff Interventions:: Therapist used active listening and emotional validation to provide a safe space for client to verbalize an acute stressor client was facing. Therapist used open-ended questions to gather information on the situation and client's behavioral responses to the situation. Therapist discussed healthy coping skills with client and helped client reflect on how his actions can positively or negatively impact the outcome. Therapist and client talked about healthy emotional release coping skills client can use today. Therapist used strengths perspective to identify positives. Client Response:: Client responded well to session, appeared fatigued and depressed, but receptive to discussion with therapist. Client shared he has never felt angrier or more down than client felt yesterday. Client reported an incident has occurred with his children that per client's report was unexpected and unfair. Client shared he did not respond well to the event and screamed at someone over the phone. Client stated he was so upset he would have done worse i f client was with the man in person. Client shared he is exhausted from not sleeping, screaming, and breaking things yesterday. Client shared he also drank, but he was able to control the amount of alcohol he consumed which demonstrates progress. Client reported he hurts emotionally because client cannot do anything about the situation and he has limited answers. Client and therapist discussed how client's actions can positively or negatively impact the outcome, so it is important for client to manage his emotions and anger. Client stated awareness of this and shared he called back and apologized to the man he yelled at on the phone. Client and therapist discussed healthy coping skills for today such as avoiding triggering people and taking time for self-care and mindfulness. Client also has an appointment at [facility] today which client is hopeful about. Client recognized coming to [facility] today as a positive and shared he realizes he has made progress despite this recent setback. Risks/Concerns:: Client denies suicidal ideation, plan, and intent as of 05/30/18. Client reports due to recent situation he is having increased thoughts of hurting others, denies plan or intent. Client reports ability to maintain safety with himself and others. Progress Toward Goals/Plan:: Client reports yesterday was a big setback in his mental health treatment, however, upon further exploration client recognized that he did not revert back to all forms of unhealthy coping and he did, in fact, use healthy skills such as apologizing and not hitting anyone. Client continues to endorse irritability, anxiety, symptoms of PTSD, and difficulty regulating his emotions. Client reports feeling drained and exhausted today, but he reports plan to follow through with his appointment at [facility] this afternoon. Client was also receptive to discussing healthy coping and consequences with therapist during session which demonstrates progress. Client to continue IOP to promote mood stability and emotional regulation during this difficult time. Client has an appointment today at [facility] for an intake for their trauma-focused IOP. Time Stopped:: 11:45
--- NOTE | 2018-06-02 10:15 | BH.SGPN.GN ---
Behaviors/Verbalizations/Mental Status: []Eye contact is good. Motor activity is appropriate. Appearance is casual. Speech is Appropriate. Mood is anxious and irritable. Affect is congruent. Thoughts are linear and logical. No evidence of psychosis. Client Response/Progress/Benefit: []Pt listened attentively to others and contributed to discussion at times. Pt worked cooperatively with peers during support activity. Pt agreed with others it can be challenging to use supports when feel others don't understand what you are experiencing. Pt reported he gets easily frustrated when people don't attempt to empathize with his situation or how his past trauma impacts him. Pt reported although he has bad interactions with others in the past he recognizes having healthy supports to talk with can be helpful when going through difficult times. Pt seemed to benefit from group brainstorming positive qualities of a support person. Narrative Note: []
--- NOTE | 2018-06-02 11:15 | BH.SGPN.GN ---
Behaviors/Verbalizations/Mental Status: []Client alert and oriented, casually dressed and neatly groomed. Eye contact fair. Motor activity appropriate. Speech within normal limits. Affect congruent. Mood anxious, irritable. Thoughts linear, logical, no signs of hallucinations or delusions. Client Response/Progress/Benefit: []Pt contributed thoughts and ideas at times, listened attentively to others. Pt able to identify benefits and characteristics for the different types of social support discussed. Pt reported he recognizes some of his personal relationships are not healthy supports, but stated it would take too much work to find a new support system. Pt shared he recognizes he can be more intentional on which friends he can utilize based on what type of support he needs. Pt seemed to benefit from increased awareness of the types of support pt could utilize. Pt to continue IOP level of care to maintain gains, stabilize moods, and prevent decompensation. Narrative Note: []
--- NOTE | 2018-06-03 16:34 | BH.COMM ---
Communication Note - Communication with Client Communication Note: Therapist spoke with Rosa Nj at [facility] to discuss client?s recent intake appointment. Client signed a release of information and was informed of the conversation. Rosa and therapist discussed client's referral to [facility]'s trauma-focused IOP and therapist advocated for client and answered questions regarding client's progress, coping skills learned, and participation in group settings.
--- NOTE | 2018-06-04 09:05 | BH.SGPN.GN ---
Behaviors/Verbalizations/Mental Status: [] Eye contact is good. Motor activity is appropriate. Appearance is casual. Speech is Appropriate. Mood is anxious and irritable. Affect is congruent. Thoughts are linear and logical. No evidence of psychosis. Reviewed daily check in sheet and no reports of suicidal ideations or intent. Client Response/Progress/Benefit: [] Pt was an active participant in group discussion. Emotion for today is angry but trying. Shared with the group several small frustrations this AM which led to anger. He reports that he consciously made a decision to not let the shit that happened this morning effect the rest of the day. He reports how this is progress for him. He gave examples of anger and mood management over the past week which he is proud of. He understands that his mood and anger continue to effect him daily as due his PTSD symptoms. Reports that there is still alot of work to be done however he has made a commitment to continue to work on mental health symptoms. States that his is going to start trauma-focused work at [facility] next week which he is looking forward too. Discussed some skills that he learned in group as well as decrease is stigma associated with MH diagnosis and treatment. Shared that overall the IOP program has been beneficial noting that today is his last day. Progress noted since beginning the program due to increased insight, awareness, and coping skills to manage mood, stressors, and people. Narrative Note: []
--- NOTE | 2018-06-04 10:30 | BH.AFTERPLAN ---
Aftercare Plan - Demographics Treatment End Date:: 06/04/18 Psychiatrist:: Prabha Springer Psychiatrist Office #:: [id number] [facility]/IOP Therapist:: Melani Coombs Therapist Phone #:: [phone] - Medications Home Medications: Home Medications Ondansetron HCl [Zofran] 4 mg PO DAILY PRN 05/02/18 Oxycodone HCl/Acetaminophen [Percocet 5/325] 1 - 1.5 tablet PO DAILY PRN 05/02/18 Sertraline HCl [Zoloft] 100 mg PO DAILY 05/02/18 traZODone [Desyrel] 50 - 100 mg PO QHS 05/02/18 - Plan Details Progress/Aftercare Plan Details:: Ramsey, you shared not being where you want to be just yet, but you have shown progress in managing your emotions, mental health, and choices. You have increased self-awareness of personal warning signs and triggers for PTSD, anger, and negative maintenance cycles. You have started incorporating healthy coping skills to replace unhealthy strategies and have become more mindful of the how thoughts, behaviors, and emotions connect. You are facing a major stressor right now, so it may be more challenging to identify your progress, but there are positives. Since starting IOP you have been able to increase your ability to verbally express emotions, learned to take (and communicate) breaks to regulate emotions, incorporated mindfulness, and found ways to use humor as a coping skill. You have increased awareness of things that keep you stuck in unhealthy maintenance cycles such as drinking, and you have been able avoid drinking to cope. You have learned that there are things in life that are out of your control and that you may not like it or approve of it, but you can accept it and control how you react to those situations. Great work and good luckRamsey! Strategies for Success:: 1. Be aware of those warning signs and triggers!! 2.Use daily mindfulness to not only recognize thoughts and emotions, but to reduce stress and find peace in the moment. 3. Establish a healthy routine that provides you avenues to feel accomplished and promotes mindfulness. 4. Find ways to physically regulate your emotions! Swimming, elliptical, walking, fishing, yoga. 5. TALK! remember to express your emotions with a healthy support rather than bottle it up. Also, remember to communicate what you need! 6. Try journaling to process anger and other strong emotions. 7. Humor! Find one positive a day or find at least one way to laugh. 8. Remember you can't control others, but you can control your response. Try to focus on how you can better your emotions and thoughts rather than giving the control of your mood to others or external situations. 9. Guitar? Comedy? Art? forming machine upkeep mechanic a hobby that gives you passion, drive, and purpose- Self-care is important! 10. Use mindfulness cues and take breaks when needed. 11. Reflect on your progress and challenge negative thoughts! - Appointments Appointments/Referrals to Other Services:: 1. Follow up with [facility] starting possibly next week. 2. Follow up with psychiatry with [facility] on 06/16/[address] Rodgers for medication management call for an appointment. 4. Follow up with [facility] or identify a new individual therapist after trauma center IOP. 5. Two week follow up with me to touch base and find resources.
--- NOTE | 2018-06-04 10:48 | BH.IGGP_ITS ---
Aftercare Plan - Demographics Treatment End Date:: 06/04/18 Psychiatrist:: Prabha Springer Psychiatrist Office #:: [id number] [facility]/IOP Therapist:: Melani Coombs Therapist Phone #:: [phone] - Medications Home Medications: Home Medications Ondansetron HCl [Zofran] 4 mg PO DAILY PRN 05/02/18 Oxycodone HCl/Acetaminophen [Percocet 5/325] 1 - 1.5 tablet PO DAILY PRN 05/02/18 Sertraline HCl [Zoloft] 100 mg PO DAILY 05/02/18 traZODone [Desyrel] 50 - 100 mg PO QHS 05/02/18 - Plan Details Progress/Aftercare Plan Details:: Ramsey, you shared not being where you want to be just yet, but you have shown progress in managing your emotions, mental health, and choices. You have increased self-awareness of personal warning signs and triggers for PTSD, anger, and negative maintenance cycles. You have started incorporating healthy coping skills to replace unhealthy strategies and have become more mindful of the how thoughts, behaviors, and emotions connect. You are facing a major stressor right now, so it may be more challenging to identify your progress, but there are positives. Since starting IOP you have been able to increase your ability to verbally express emotions, learned to take (and communicate) breaks to regulate emotions, incorporated mindfulness, and found ways to use humor as a coping skill. You have increased awareness of things that keep you stuck in unhealthy maintenance cycles such as drinking, and you have been able avoid drinking to cope. You have learned that there are things in life that are out of your control and that you may not like it or approve of it, but you can accept it and control how you react to those situations. Great work and good luckRamsey! Strategies for Success:: 1. Be aware of those warning signs and triggers!! 2.Use daily mindfulness to not only recognize thoughts and emotions, but to reduce stress and find peace in the moment. 3. Establish a healthy routine that provides you avenues to feel accomplished and promotes mindfulness. 4. Find ways to physically regulate your emotions! Swimming, elliptical, walking, fishing, yoga. 5. TALK! remember to express your emotions with a healthy support rather than bottle it up. Also, remember to communicate what you need! 6. Try journaling to process anger and other strong emotions. 7. Humor! Find one positi ve a day or find at least one way to laugh. 8. Remember you can't control others, but you can control your response. Try to focus on how you can better your emotions and thoughts rather than giving the control of your mood to others or external situations. 9. Guitar? Comedy? Art? signals intelligence superintendent a hobby that gives you passion, drive, and purpose- Self-care is important! 10. Use mindfulness cues and take breaks when needed. 11. Reflect on your progress and challenge negative thoughts! - Appointments Appointments/Referrals to Other Services:: 1. Follow up with [facility] starting possibly next week. 2. Follow up with psychiatry with [facility] on 06/16/[address] Rodgers for medication management call for an appointment. 4. Follow up with [facility] or identify a new individual therapist after trauma center IOP. 5. Two week follow up with me to touch base and find resources.
--- NOTE | 2018-06-04 15:23 | BH.MDN_ITS ---
Multi-Disciplinary Note - Note 30-min Individual Time Started:: 10:45 Date: 06/04/18 Purpose of session/treatment goals addressed:: The purpose of this session was to provide closure, evaluate progress, review strategies for success, and discuss aftercare plan. Eye Contact:: Good Motor Activity:: Restless Appearance:: Casual Speech:: Appropriate Mood:: Anxious Affect:: Congruent Thoughts:: Linear, Logical, No evidence of hallucinations/delusions noted Staff Interventions:: Therapist used open-ended questions to explore client's thoughts on personal progress. Therapist reviewed strategies and coping skills with client to promote gains and prevent setbacks. Therapist discussed aftercare plan with client and used strengths-perspective to empower client. Therapist gave client IOP surveys and resources for aftercare. Client Response:: Client responded well to session, open to meeting with therapist. Client reported feeling in better spirits today despite current stressors going on in his life. Client reflected on progress since starting IOP including increased awareness, verbalizing his emotions without exploding, and learning healthy coping skills to manage anger and triggers. Client shared he has learned to adjust and be more optimistic when hard times happen in life. Client recently had an intake at [facility] and was able to express his symptoms and emotions without blowing up. Client has been using mindfulness strategies more frequently and reports plan to start painting. Client has also refrained from alcohol which client used to use as a coping skill. Client reported at the beginning of IOP it was hard for him to sit still and concentrate during group, but by the end client was able to use in the moment coping skills to manage his symptoms. Client shared he has been focusing on not allowing external situations and people to control his emotions. Client stated IOP was helpful as client felt comfortable when he came to group which allowed client to process his mental health and reduce stress. Client able to identify strategies for success that will help client move forward in his mental health treatment. Client reports plan to attend [facility]'s trauma-focused IOP and follow up with his doctor through workman's compensation for medication management. Risks/Concerns:: Client denies suicidal ideation, plan, and intent as of 06/04/18. Progress Toward Goals/Plan:: Client to discharge from IOP as he has demonstrated progress towards his treatment goals and reduced his overall DSM-5 cross-cutting scores. Client reported ?I?m not where I want to be, but I?m better than I was.? Client has shown progress with increasing self-awareness of personal warning signs and triggers for PTSD, anger, and negative maintenance cycles. Client has increased emotional regulation skills, communication, and reduced unhealthy coping skills. Client?s mood improved throughout the program as evidenced by his increased sense of humor and ability to focus on the positives during difficult situations. Client to continue treatment at [facility] at [facility] for trauma-focused IOP. Time Stopped:: 11:15
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
== END 2018-06-04 14:00 | disposition home or self-care (01) ==
LOC: BHIOP 09:00
PROVIDERS: Visit Provider Psychiatry & Neurology Psychiatry
DX: F33.2 Major depressive disorder, recurrent severe without psychotic features (principal); F43.10 Post-traumatic stress disorder, unspecified
CPT/HCPCS: H0035; H2012; H2020; 90832